=== PATIENT | male | born 1950 | race Caucasian/White ===

== ENCOUNTER → 2017-01-17 | Outpatient (CLI) | payer MEDICARE, BC ==
[2017-01-17 10:36] LABS: CHCM 34.8; HCT 44.8 % (39.0-53.0); HDW 2.95; HGB 15.2 gm/dL (13.0-17.5); MCH 33.3 pg (25.0-35.0); MCHC 33.9 g/dL (31.0-37.0); MCV 98.1 fL (80.0-100.0); RBC 4.57 m/uL (4.30-5.90); RDW 13.9 % (11.5-15.5)
[2017-01-17 10:49] LABS: Anion Gap 7 mmol/L; Blood Urea Nitrogen 15 mg/dL (9-20); Calcium 9.7 mg/dL (8.4-10.2); Carbon Dioxide 31 mmol/L (22-30); Chloride 101 mmol/L (98-107); Cholesterol 171 mg/dL (<200); Glucose 229 mg/dL (74-99); HDL Cholesterol 59 mg/dL (40-60); Non-African American GFR(MDRD) >60 (>60 ml/min/1.73 sqM); Potassium 4.9 mmol/L (3.5-5.1); Sodium 139 mmol/L (137-145); Triglycerides 114 mg/dL (<150)
[2017-01-17 11:01] LABS: Hemoglobin A1C 9.4 % (4.2-6.1)
== END | disposition home or self-care (01) ==
LOC: LABWHC1 09:41
PROVIDERS: ATTEND Internal Medicine Interventional Cardiology
DX: E11.9 Type 2 diabetes mellitus without complications (principal); I10 Essential (primary) hypertension
CPT/HCPCS: 36415; 80048; 80061; 83036; 85027

== ENCOUNTER → 2018-08-10 | Outpatient (CLI) | payer MEDICARE, BC ==
[2018-08-10 11:34] LABS: HCT 42.8 % (39.0-53.0); HGB 14.1 gm/dL (13.0-17.5); MCH 32.9 pg (25.0-35.0); MCV 99.6 fL (80.0-100.0); Mean Platelet Volume 6.9; Platelet Count 163 k/uL (150-450); RDW 13.3 % (11.5-15.5)
[2018-08-10 11:35] LABS: Appearance,Urine Clear (Clear); Bilirubin,Urine Negative (Negative); Blood,Urine Negative (Negative); Color,Urine Yellow; Glucose,Urine (UA) Negative (Negative); Ketones,Urine Negative (Negative); Leukocyte Esterase,Urine Negative (Negative); Nitrite,Urine Negative (Negative); PH, Urine 5.5 (5.0-8.0); Protein,Urine Negative (Negative); Specific Gravity,Urine 1.016 (1.001-1.035); Urobilinogen,Urine <2.0 mg/dL (<2.0)
[2018-08-10 11:55] LABS: Anion Gap 6 mmol/L; Blood Urea Nitrogen 18 mg/dL (9-20); Carbon Dioxide 29 mmol/L (22-30); Chloride 105 mmol/L (98-107); Potassium 4.6 mmol/L (3.5-5.1); Sodium 140 mmol/L (137-145)
[2018-08-10 12:14] LABS: Partial Thromboplastin Time 23.6 sec (22.0-30.0); Prothrombin Time 9.7 sec (9.0-12.0)
== END | disposition home or self-care (01) ==
LOC: LABPAT 10:08
PROVIDERS: ATTEND Orthopaedic Surgery
DX: Z01.818 Encounter for other preprocedural examination (principal); Z01.812 Encounter for preprocedural laboratory examination; Z79.01 Long term (current) use of anticoagulants
CPT/HCPCS: 80051; 81003; 82565; 84520; 85027; 85610; 85730; 87070; 93005

== ENCOUNTER → 2018-08-10 | Outpatient (CLI) | payer MEDICARE, BC ==
[2018-08-10 22:43] LABS: Hemoglobin A1C 5.6 % (4.0-6.0)
== END | disposition home or self-care (01) ==
LOC: LABWHC1 10:11
PROVIDERS: ATTEND Nurse Practitioner
DX: E11.42 Type 2 diabetes mellitus with diabetic polyneuropathy (principal)
CPT/HCPCS: 36415; 83036; 93005

== ENCOUNTER 2018-09-03 07:00 | Inpatient (IN) | payer MEDICARE, BC ==
[~2018-09-03 07:00] MED LIST: ACETAMINOPHEN TAB 500 MG TAB PO ONE; MELOXICAM 7.5 MG TAB PO ONE; MIDAZOLAM 2 MG/2 ML VIAL IV PRN; ROPIVACAINE 246.25 MG, EPINEPHrine 0.5 MG, KETOROLAC 30 MG, cloNIDine HCL/PF 80 MCG, WA... MISCELLANE ONE; TRANEXAMIC ACID 1,000 MG in SODIUM CHLORIDE 0.9% 50 ML IVPB ONE; ceFAZolin IN SWFI 2 GM/20 ML SYRINGE IVP ONE; fentaNYL (PF) 50 MCG/ML 2 ML AMP IV PRN
[2018-09-03] MEDS: LACTATED RINGERS 1,000 ML IV SCH ×2 (08:10→16:50)
[2018-09-03] MEDS ORDERED: LIDOCAINE 1% 20 ML VIAL (10MG/ML) FOR IV START INTRADERMA ONE (08:11)
[2018-09-03] MEDS ORDERED: DEXAMETHASONE SOD PHOS (MDV) 100 MG/10 ML VIAL IV ONE (08:11)
[2018-09-03] MEDS ORDERED: ONDANSETRON 4 MG/2 ML VIAL IVP ONE (08:12)
[2018-09-03] MEDS ORDERED: MIDAZOLAM 2 MG/2 ML VIAL IV ONE (08:22)
[2018-09-03] MEDS ORDERED: BISACODYL 10 MG SUPP RECTAL PRN (08:45)
[2018-09-03] MEDS ORDERED: ONDANSETRON 4 MG/2 ML VIAL IVP PRN (08:45)
[2018-09-03] MEDS ORDERED: DIAZEPAM 5 MG TAB PO PRN (08:45)
[2018-09-03] MEDS ORDERED: NA PHOS,M-B/NA PHOS,DI-BA 133 ML ENEMA RECTAL PRN (08:45)
[2018-09-03] MEDS ORDERED: hydrOXYzine PAMOATE 25 MG CAP PO PRN (08:45)
[2018-09-03] MEDS ORDERED: NALOXONE 0.4 MG/ML 1 ML VIAL IV PRN (08:45)
[2018-09-03] MEDS ORDERED: MAGNESIUM HYDROXIDE 2,400 MG/10 ML CUP PO PRN (08:45)
[2018-09-03] MEDS ORDERED: HYDROmorphone 1 MG/ML 1 ML SYRINGE IVP PRN ×3 (08:45)
[2018-09-03] MEDS ORDERED: HYDROcodone/APAP 5-325MG 1 EACH TAB PO PRN (08:45)
[2018-09-03] MEDS ORDERED: ceFAZolin 3,000 MG in SODIUM CHLORIDE 0.9% IRRIGATIO 3,000 ML IRRIGATION ONE (09:21)
--- NOTE | 2018-09-03 10:15 | P.ONQ ---
Anesthesiology Proc Note - PNB - Peripheral Nerve Block Performed Left Adductor Canal Infusion Time Out Performed: Yes Procedure Start Time: 08:23 Procedure Stop Time: 08:36 Indication: Acute Post-Operative Pain, Requested by physician Sedation Type: Sedate with meaningful contact maintained Preparation: Sterile Dressing Catheter: Indwelling Needle Types: On-Q Needle Size: 100mm (4") Needle Gauge: 21 Technique: Ultrasound Injectate: 0.5% Ropivacaine (see comment for volume) (ropi .5%) Blood Aspirated: No Pain Paresthesia on Injection Noted: No Resistance on Injection: Normal Events: Uneventful and Well Tolerated
[2018-09-03] MEDS ORDERED: ROPIVACAINE 1,100 MG, SODIUM CHLORIDE 0.9% 500 ML 330 ML MISCELLANE PRN ×2 (10:23)
[2018-09-03] MEDS ORDERED: LACTATED RINGERS 1,000 ML IV ONE (10:36)
--- NOTE | 2018-09-03 10:40 | P.OP ---
Date of Procedure: 09/03/18 Preoperative Diagnosis: Severe osteoarthritis left knee Postoperative Diagnosis: Severe osteoarthritis left knee Procedure(s) Performed: Left total knee arthroplasty Implants: Vasquez [employer] Nephew Journey II CR Oxinium cruciate retaining femoral component size 7, left Vasquez [employer] Journey left nonporous tibial baseplate size 6 Vasquez [employer] Journey II, XLPE CR articular insert, size 9 mm, Size 5-6 left [employer] Journey BCS resurfacing Oval patellar component, 32 mm All components were cemented using [place]os R bone cement.. The articulation is Oxinium on polyethylene. Anesthesia: spinal Surgeon: iNco Elizondo Supervisor Corduroy Cutting #1: Sofia Ma Estimated Blood Loss (ml): 50 Pathology: other (Bone and cartilage) Condition: stable Disposition: PACU Indications for Procedure: After failure of conservative treatment we discussed the surgical and nonsurgical treatment options at length. Patient wishes to proceed with a total knee arthroplasty. Complications specific to this procedure were discussed at length, including but not limited to infection, bleeding, stiffness , and nerve injury. Patient is aware of all these complications and informed consent was obtained Operative Findings: The operative findings are consistent with severe osteoarthritis of the left knee Description of Procedure: Patient was seen in the preoperative area consent was reviewed and operative site was marked with a skin marker. An adductor canal pain catheter was placed by anesthesia in the preoperative area. Patient was then brought to the operating room and given preoperative antibiotics intravenously. A spinal anesthetic was administered by the anesthesia department. A tourniquet was placed on the upper thigh and the lower extremity was prepped and draped in usual sterile fashion. A gram of transexamic acid was given. A universal timeout was then performed which confirmed the patient's name, surgical site, ALLERGIES, and consent. The lower extremity was then exsanguinated and tourniquet was inflated to 250 mmHg. A standard and anterior midline approach to the knee was performed. The skin and subcutaneous tissue was dissected down to the patellar tendon. A medial parapatellar arthrotomy was then performed. The knee was then extended, the patellar was everted, and the knee was again flexed. Anterior horns of both menisci were excised, and a release was performed to the posterior medial aspect of the knee. On gross visual inspection, there was complete loss of articular cartilage in the medial and patellofemoral joint spaces. There was also significant cartilage damage in the lateral compartment. There were multiple periarticular osteophytes which were then removed with a Ronguer. The femoral canal was then opened with the appropriate drill, and the intramedullary femoral cutting guide was then placed and set for 5 of valgus. The distal femoral cutting block was then pinned in place, and the distal femur was then cut. The cutting block was then removed and the cut was checked for flatness. Next, the sizing guide was then placed and set for 3 external rotation based off of the epicondylar axis and Whitesides line. After the femur was sized, the appropriate 4-in-1 cutting block was then pinned in place. The anterior condyles were cut without notching. The posterior and chamfer cuts were performed while protecting the collateral ligaments. The cutting block was then removed, and the femoral canal was plugged with autologous bone. Attention was then directed to the tibia. The remaining ACL was removed with a Ronguer, and the tibia was then gently subluxed forward with a large bent knee retractor. Any remaining menisci was excised. The posterior lateral corner was cauterized in order to cauterize the lateral geniculate artery. The extra medullary tibial cutting guide was then placed, set for the appropriate rotation , slope, and depth of resection. The proximal tibia cutting guide was then pinned in place. Proximal tibia was then cut and sized. Next trials were then placed with the appropriate-sized insert. The knee was able to fully extend and flex to 130 and was stable throughout all range of motion. The knee was then extended, patella everted. Patella was then measured, and then using an osteotomy guide, the patella was cut at the appropriate level. The patella was then measured and drilled and the patella trial was then placed. The knee was then taken through range of motion with the patella trial and the patella tracked normally. The knee was then extended patella trial was then removed and the patella was everted. Knee was then flexed and lug holes were drilled through the femoral trial and the femoral trial was then removed. The tibial was then exposed, and the tibial broach guide was then pinned in place after it was set for the appropriate rotation to allow for the most coverage without overhang. The tibia was then reamed and broached. The cut surfaces of bone were then irrigated with pulsatile lavage. The posterior structures were injected with the ropivacaine solution. The knee was also irrigated with Irrisept solution. The components were then opened, the cement was mixed, and the components were then cemented in place. The cement was allowed to harden with the knee in full extension. While the cement was hardening, the remaining soft tissues were then injected with a ropivacaine solution, which consisted of 246.25 mg of ropivacaine, 0.5 mg of epinephrine, 30 mg of Toradol, 80 g of clonidine, and 48.45 mL of sterile water, for a total of 100 mL of fluid injected. After the cemented hardened. The tourniquet was released, and hemostasis was obtained. A second gram of transexamic acid was given. The knee was again irrigated. The knee was again taken through range of motion and found to be stable throughout all range of motion of 0-130 , and the patella tracked normally. The fascia was then closed with #2 strata fix suture. The subcutaneous tissue was closed with 3-0 Vicryl and 3-0 strata fix. Dermabond glue was used for the skin and placed with the knee in flexion. The patient was placed in a sterile silver dressing. Patient was then transferred to recovery room in stable condition. The urology physician assistant JENNIFER Hills was required due the complexity surgery and the need for a skilled surgical corsetier. She assisted in positioning, draping, retraction, and closure of the wound.
--- NOTE | 2018-09-03 12:03 | XR ---
EXAMINATION TYPE: XR knee limited LT DATE OF EXAM: 09/03/2018 CLINICAL HISTORY: Left knee pain and arthritis status post total knee replacement. TECHNIQUE: Portable AP and crosstable lateral views of the left knee are obtained immediately postop eratively. COMPARISON: None FINDINGS: Metallic hardware from total left knee arthroplasty is seen and appears satisfactory in al ignment and position. There is evidence of recent surgery with diffuse subcutaneous gas and soft tis malcolm swelling noted. IMPRESSION: METALLIC HARDWARE FROM TOTAL LEFT KNEE ARTHROPLASTY IS SATISFACTORY IN ALIGNMENT.
[2018-09-03 12:14] LABS: Glucose,Whole Blood 139 mg/dL (75-99)
[2018-09-03 15:08] VITALS: BMI 33.7
[2018-09-03] MEDS: SODIUM CHLORIDE 0.9% 1,000 ML IV SCH (16:51)
[2018-09-03] MEDS: ceFAZolin IN SWFI 2 GM/20 ML SYRINGE IVP SCH (16:54)
[2018-09-03] MEDS: INSULIN ASPART 100 UNIT/ML 1 ML 10 ML VIAL SQ SCH ×2 (17:04→20:40)
[2018-09-03 17:09] LABS: Glucose,Whole Blood 148 mg/dL (75-99)
[2018-09-03 20:31] LABS: Glucose,Whole Blood 199 mg/dL (75-99)
[2018-09-03] MEDS: ASPIRIN 325 MG TAB PO SCH (20:38)
[2018-09-03] MEDS ORDERED: SENNOSIDES-DOCUSATE SODIUM 1 EACH TAB PO SCH (21:00)
[2018-09-03] MEDS ORDERED: ATORVASTATIN 20 MG TAB PO SCH (21:00)
[2018-09-03] MEDS ORDERED: LISINOPRIL 20 MG TAB PO SCH (21:00)
[2018-09-04] MEDS: ceFAZolin IN SWFI 2 GM/20 ML SYRINGE IVP SCH (01:06)
[2018-09-04] MEDS: SODIUM CHLORIDE 0.9% 1,000 ML IV SCH ×2 (01:59→06:57)
[2018-09-04] MEDS: LACTATED RINGERS 1,000 ML IV SCH ×2 (02:00→06:52)
[2018-09-04 06:57] LABS: Glucose,Whole Blood 102 mg/dL (75-99)
[2018-09-04] MEDS: INSULIN ASPART 100 UNIT/ML 1 ML 10 ML VIAL SQ SCH ×2 (06:57→12:02)
[2018-09-04] MEDS: HYDROcodone/APAP 5-325MG 1 EACH TAB PO PRN ×2 (07:00→12:02)
[2018-09-04] MEDS: ASPIRIN 325 MG TAB PO SCH (07:00)
--- NOTE | 2018-09-04 07:58 | P.PN ---
Progress Note - Text Progress Note Date: 09/04/18 The patient is status post[ 1] adductor canal catheter placement. The catheter was placed for postoperative pain control, status post total [left Knee] arthroplasty. Ropivacaine 0.2% is infusing at[ 8] mLs per hour. The patient has no complaints of[ ] lower extremity numbness or weakness. Patient's VAS score is[ 3]-10. Assessment: Patient's adductor canal catheter is in place and working appropriately. Plan: continue infusion and adjust it as needed.
[2018-09-04 08:00] LABS: Basophils % (A) 0 %; Eosinophils # (A) 0.1 k/uL (0-0.7); Eosinophils % (A) 2 %; HCT 35.2 % (39.0-53.0); HGB 11.9 gm/dL (13.0-17.5); Lymphocytes # (A) 1.2 k/uL (1.0-4.8); Lymphocytes % (A) 21 %; MCH 33.4 pg (25.0-35.0); MCHC 33.9 g/dL (31.0-37.0); MCV 98.4 fL (80.0-100.0); Mean Platelet Volume 7.1; Monocytes # (A) 0.5 k/uL (0-1.0); Monocytes % (A) 8 %; Neutrophils # (A) 3.9 k/uL (1.3-7.7); Neutrophils % (A) 67 %; Platelet Count 145 k/uL (150-450); RBC 3.57 m/uL (4.30-5.90); RDW 13.3 % (11.5-15.5); WBC 5.7 k/uL (3.8-10.6)
[2018-09-04 08:13] LABS: ALT 33 U/L (21-72); AST 21 U/L (17-59); Albumin 3.2 g/dL (3.5-5.0); Alkaline Phosphatase 43 U/L (38-126); Anion Gap 4 mmol/L; Blood Urea Nitrogen 17 mg/dL (9-20); Calcium 8.8 mg/dL (8.4-10.2); Carbon Dioxide 29 mmol/L (22-30); Chloride 105 mmol/L (98-107); Glucose 115 mg/dL (74-99); Potassium 4.1 mmol/L (3.5-5.1); Sodium 138 mmol/L (137-145); Total Bilirubin 1.3 mg/dL (0.2-1.3); Total Protein 5.6 g/dL (6.3-8.2)
[2018-09-04] MEDS ORDERED: MELOXICAM 7.5 MG TAB PO SCH (09:00)
--- NOTE | 2018-09-04 10:11 | P.HPIM ---
History of Present Illness H&P Date: 09/04/18 Chief Complaint: Osteoarthritis of the left This is a 68-year-old male patient of Dr. Melvin. Patient presented for an elective total left knee arthroplasty with Dr. Elizondo on 09/03/2018. Patient has a known past medical history of chest pain, diabetes mellitus, hyperlipidemia, hypertension, heart cath, PVCs related to irregular rhythm, skin cancer, diverticulitis and ex-smoker. Patient is currently postop day 1. Patient is currently resting in bed. Patient states he feels minimal pain to left knee. left knee incision clean dry and intact. Patient is eager to go home patient has been up walking. Patient does have adequate pain control per surgical services. At this time patient denies chest pain or shortness of breath. Patient denies nausea vomiting or diarrhea. Patient denies any urinary burning or frequency. Review of Systems Please refer to HPI otherwise unremarkable Past Medical History Past Medical History: Cancer, Chest Pain / Angina, Diabetes Mellitus, Hyperlipidemia, Hypertension, Osteoarthritis (OA) Additional Past Medical History / Comment(s): IRREGULAR RYTHYM, SKIN CANCER ON BACK,DIVERTICULITIS, IN NOV 2014 FELL DOWN STEPS HAD BRUISED LIVER. History of Any Multi-Drug Resistant Organisms: None Reported Past Surgical History: Heart Catheterization, Hernia Repair, Orthopedic Surgery Additional Past Surgical History / Comment(s): UMBILICAL HERNIA REPAIR, COLONOSCOPY, LT KNEE ARTHROSCOPY, Past Anesthesia/Blood Transfusion Reactions: No Reported Reaction Past Psychological History: No Psychological Hx Reported Additional Psychological History / Comment(s): . Smoking Status: Former smoker Past Alcohol Use History: Occasional Additional Past Alcohol Use History / Comment(s): SMOKED TEENAGER, QUIT 40 YEARS AGO Past Drug Use History: None Reported - Past Family History Father Family Medical History: Cancer, Diabetes Mellitus Additional Family Medical History / Comment(s): PROSTATE Mother Family Medical History: Cancer Additional Family Medical History / Comment(s): COLON CANCER Brother(s) Family Medical History: Cancer Additional Family Medical History / Comment(s): COLON CA Medications and Allergies Home Medications Medication Instructions Recorded Confirmed Type Acetaminophen Tab [Tylenol] 500 mg PO Q6H PRN 02/27/15 09/03/18 History Aspirin EC [Ecotrin Low Dose] 81 mg PO HS 02/27/15 09/03/18 History Atorvastatin Calcium [Lipitor] 20 mg PO HS 02/27/15 09/03/18 History Enalapril [Vasotec] 10 mg PO HS 02/27/15 09/03/18 History Ibuprofen [Motrin] 200 mg PO Q6HR PRN 02/27/15 09/03/18 History Multivitamin [Men's Multi-Vitamin] 1 tab PO DAILY 02/27/15 09/03/18 History [place]-3 Fatty Acids/Fish Oil [Fish 1 cap PO DAILY 02/27/15 09/03/18 History Oil 1,000 mg Softgel] metFORMIN HCL 1,000 mg PO BID 08/29/18 09/03/18 History Aspirin 325 mg PO BID #60 tab 09/04/18 Rx HYDROcodone/APAP 5-325MG [[place] 1 - 2 tab PO Q4-6H PRN #84 tab 09/04/18 Rx 5-325] Sennosides [Senokot] 1 tab PO BID #60 tablet 09/04/18 Rx Allergies Allergy/AdvReac Type Severity Reaction Status Date / Time No Known Allergies Allergy Verified 09/03/18 15:11 Physical Exam Vitals: Vital Signs Temp Pulse Resp BP Pulse Ox 09/04/18 07:02 17 09/04/18 06:55 97.6 F 72 17 159/83 97 09/04/18 03:41 55 L 16 09/04/18 00:00 55 L 16 09/03/18 23:00 97.3 F L 55 L 16 101/55 93 L 09/03/18 20:00 55 L 16 09/03/18 19:00 98 F 69 18 127/67 94 L 09/03/18 16:00 16 09/03/18 15:10 97.8 F 67 16 125/78 94 L 09/03/18 14:30 58 L 16 139/62 97 09/03/18 14:00 51 L 16 141/60 97 09/03/18 13:30 52 L 16 130/77 97 09/03/18 13:00 59 L 16 129/79 97 09/03/18 12:45 57 L 16 131/79 96 09/03/18 12:30 61 16 126/75 96 09/03/18 12:15 57 L 16 124/69 96 09/03/18 11:59 58 L 16 124/66 94 L 09/03/18 11:30 55 L 18 123/65 95 09/03/18 11:11 97.8 F 60 18 128/67 93 L Intake and Output 09/03/18 09/04/18 09/04/18 22:59 06:59 14:59 Output Total 1000 Balance -1000 Output: Urine 1000 Other: Voiding Method Toilet Toilet Toilet # Voids 3 Weight 113 kg Head normocephalic Neck supple Lungs clear to auscultation bilaterally no wheezing or crackles Heart regular rate and rhythm S1-S2, no rub or gallop Abdomen is soft nontender nondistended positive bowel sounds no hepatosplenomegaly Extremities no edema. Left knee dressing is clean dry and intact Neuro alert and orientated to 3 Results CBC & Chem 7: 09/04/18 07:12 09/04/18 07:12 Labs: Abnormal Lab Results - Last 24 Hours (Table) 09/03/18 09/03/18 09/03/18 Range/Units 12:13 16:58 20:29 RBC (4.30-5.90) m/uL Hgb (13.0-17.5) gm/dL Hct (39.0-53.0) % Plt Count (150-450) k/uL Glucose (74-99) mg/dL POC Glucose (mg/dL) 139 H 148 H 199 H (75-99) mg/dL Total Protein (6.3-8.2) g/dL Albumin (3.5-5.0) g/dL 09/04/18 09/04/18 09/04/18 Range/Units 06:45 07:12 07:12 RBC 3.57 L (4.30-5.90) m/uL Hgb 11.9 L (13.0-17.5) gm/dL Hct 35.2 L (39.0-53.0) % Plt Count 145 L (150-450) k/uL Glucose 115 H (74-99) mg/dL POC Glucose (mg/dL) 102 H (75-99) mg/dL Total Protein 5.6 L (6.3-8.2) g/dL Albumin 3.2 L (3.5-5.0) g/dL Thrombosis Risk Factor Assmnt - Choose All That Apply Any of the Below Risk Factors Present?: Yes Each Risk Factor Represents 2 Points: Age 61-74 years, Major surgery Thrombosis Risk Factor Assessment Total Risk Factor Score: 4 Thrombosis Risk Factor Assessment Level: Moderate Risk Assessment and Plan Assessment: 1. Status post total left knee arthroplasty with Dr. Elizondo. Patient is currently postop day 1. Pain control per surgical services. Patient DVT prophylactic with aspirin 325 by mouth twice a day. Patient has been ambulating. 2. History of diabetes mellitus. Metformin currently on hold 3. History of hyperlipidemia. Maintained on Lipitor 4. Essential hypertension. Home meds resumed 5. History of irregular rhythm with premature ventricular complexes 8. History of diverticulitis DVT prophylaxis aspirin. GI prophylaxis Protonix. Thank you for this consultation we will continue to follow patient closely throughout stay. Patient planning to be DC'd home when cleared by [id number] Time with Patient: Greater than 30 (Greater than 60% of the total time spent in counseling and coordination of care. I performed an examination of the patient and discussed their management with the Nurse Practitioner. I have reviewed the Nurse Practitioner's notes and agree with the documented findings and plan of care)
--- NOTE | 2018-09-04 11:00 | P.DS ---
Providers Date of admission: 09/03/18 07:31 Expected date of discharge: 09/04/18 Attending physician: Nico Elizondo Consults: 09/03/18 08:45 Consult Physician Routine Consulting Provider: Bryce Barnes Consult Reason/Comments: medical management Do you want consulting provider notified?: Yes Primary care physician: Reyna Melvin - Discharge Diagnosis(es) (1) Primary osteoarthritis of left knee Current Visit: Yes Status: Acute (2) S/P total knee arthroplasty Current Visit: Yes Status: Acute Hospital Course: This is a 68-year-old male with known history of degenerative arthritis of the left knee. The patient presents for evaluation. After discussion and consideration patient elects to proceed with total knee arthroplasty. The patient is seen preoperatively by Dr. Elizondo and medically cleared for surgery by their primary care physician. Patient is admitted to [facility] on 09/03/2018 for total knee arthroplasty. The procedures performed without complication or sequelae. The patient is doing well postoperatively. Labs and vital signs are stable on day of discharge. On day of discharge patient's knee incision is healing well. There is minimal erythema. There is no drainage noted at this time. There is minimal soft tissue swelling to the knee. Patient has full foot and ankle motion without difficulty or pain. Neurovascular status to the left lower extremity is intact. Patient is discharged home in good condition. Please see med rec for accurate list of home medications. Plan - Discharge Summary Discharge Rx Participant: No New Discharge Prescriptions: New Aspirin 325 mg PO BID #60 tab HYDROcodone/APAP 5-325MG [[place] 5-325] 1 - 2 tab PO Q4-6H PRN #84 tab PRN Reason: Pain Sennosides [Senokot] 1 tab PO BID #60 tablet No Action Enalapril [Vasotec] 10 mg PO HS Atorvastatin Calcium [Lipitor] 20 mg PO HS Ibuprofen [Motrin] 200 mg PO Q6HR PRN PRN Reason: Pain Acetaminophen Tab [Tylenol] 500 mg PO Q6H PRN PRN Reason: Pain Aspirin EC [Ecotrin Low Dose] 81 mg PO HS [place]-3 Fatty Acids/Fish Oil [Fish Oil 1,000 mg Softgel] 1 cap PO DAILY Multivitamin [Men's Multi-Vitamin] 1 tab PO DAILY metFORMIN HCL 1,000 mg PO BID Discharge Medication List Acetaminophen Tab [Tylenol] 500 mg PO Q6H PRN 02/27/15 [History] Aspirin EC [Ecotrin Low Dose] 81 mg PO HS 02/27/15 [History] Atorvastatin Calcium [Lipitor] 20 mg PO HS 02/27/15 [History] Enalapril [Vasotec] 10 mg PO HS 02/27/15 [History] Ibuprofen [Motrin] 200 mg PO Q6HR PRN 02/27/15 [History] Multivitamin [Men's Multi-Vitamin] 1 tab PO DAILY 02/27/15 [History] [place]-3 Fatty Acids/Fish Oil [Fish Oil 1,000 mg Softgel] 1 cap PO DAILY [History] metFORMIN HCL 1,000 mg PO BID 08/29/18 [History] Aspirin 325 mg PO BID #60 tab 09/04/18 [Rx] HYDROcodone/APAP 5-325MG [[place] 5-325] 1 - 2 tab PO Q4-6H PRN #84 tab 09/04/18 [ Rx] Sennosides [Senokot] 1 tab PO BID #60 tablet 09/04/18 [Rx] Follow up Appointment(s)/Referral(s): Nico Elizondo DO [Doctor of Osteopathic Medicine] - 2 Weeks Ambulatory/Diagnostic Orders: Continuous Passive Motion (CPM) Machine [DME.AMB1] Time Frame: 3 Weeks, Location : None Selected Activity/Diet/Wound Care/Special Instructions: Weightbearing as tolerated with a walker. CPM 5-6h daily. Leave dressing intact. May be removed by home care nurse in 10 days. May shower with dressing on. Please follow up with [facility] and call with any questions or concerns, . Discharge Disposition: HOME WITH HOME HEALTH SERVICES
[2018-09-04 12:11] LABS: Glucose,Whole Blood 106 mg/dL (75-99)
[2018-09-04 14:49] VITALS: BP 115/57; PULSE 50; RESP 16; TEMP 97.8
[2018-09-05] MEDS ORDERED: PANTOPRAZOLE 40 MG TABLET PO SCH (07:30)
== END 2018-09-04 15:58 | disposition home or self-care (01) | DRG 470 ==
LOC: 2ORMAIN 07:31 → 4SSUR 14:39
PROVIDERS: ADMIT Orthopaedic Surgery; ATTEND Orthopaedic Surgery
PROC: 0SRD069 Replacement of Left Knee Joint with Oxidized Zirconium on Polyethylene Synthetic Substitute, Cemented, Open Approach (ICD-10-PCS; principal; 2018-09-03 09:15)
DX: M17.12 Unilateral primary osteoarthritis, left knee (principal); E11.9 Type 2 diabetes mellitus without complications; E78.5 Hyperlipidemia, unspecified; I10 Essential (primary) hypertension; H91.90 Unspecified hearing loss, unspecified ear; E78.00 Pure hypercholesterolemia, unspecified; E66.9 Obesity, unspecified; Z68.33 Body mass index [BMI] 33.0-33.9, adult; Z85.828 Personal history of other malignant neoplasm of skin; Z87.891 Personal history of nicotine dependence; Z87.19 Personal history of other diseases of the digestive system; Z83.3 Family history of diabetes mellitus; Z80.0 Family history of malignant neoplasm of digestive organs; Z80.42 Family history of malignant neoplasm of prostate; Z79.82 Long term (current) use of aspirin; Z79.84 Long term (current) use of oral hypoglycemic drugs; Z79.899 Other long term (current) drug therapy
CPT/HCPCS: 80053; 85025; 88300

== ENCOUNTER → 2020-04-15 | Outpatient (CLI) | payer MEDICARE ==
[2020-04-15 07:51] LABS: HCT 41.2 % (39.0-53.0); HGB 14.2 gm/dL (13.0-17.5); MCH 34.1 pg (25.0-35.0); MCHC 34.5 g/dL (31.0-37.0); MCV 98.7 fL (80.0-100.0); Mean Platelet Volume 7.4; Platelet Count 179 k/uL (150-450); RBC 4.17 m/uL (4.30-5.90); RDW 13.4 % (11.5-15.5); WBC 4.4 k/uL (3.8-10.6)
[2020-04-15 08:05] LABS: African American GFR (CKD) >90 (>60 ml/min/1.73 sqM); Anion Gap 7 mmol/L; Blood Urea Nitrogen 15 mg/dL (9-20); Carbon Dioxide 26 mmol/L (22-30); Chloride 106 mmol/L (98-107); Glucose 121 mg/dL (74-99); Non-African American GFR(CKD) >90 (>60 ml/min/1.73 sqM); Potassium 4.5 mmol/L (3.5-5.1); Sodium 139 mmol/L (137-145)
== END | disposition home or self-care (01) ==
LOC: LABPAT 07:24
PROVIDERS: ATTEND Internal Medicine Interventional Cardiology
DX: Z01.818 Encounter for other preprocedural examination (principal); I47.1 Supraventricular tachycardia; E78.5 Hyperlipidemia, unspecified
CPT/HCPCS: 36415; 80051; 82565; 82947; 84520; 85027

== ENCOUNTER 2020-11-04 11:43 | Inpatient (IN) | payer MEDICARE ==
[2020-11-04] MEDS ORDERED: ACETAMINOPHEN TAB 500 MG TAB PO STA (12:00)
--- NOTE | 2020-11-04 12:13 | ED ---
General Adult HPI - General Chief complaint: Shortness of Breath Stated complaint: SOB Time Seen by Provider: 11/04/20 11:51 Source: EMS, RN notes reviewed Mode of arrival: EMS Limitations: no limitations - History of Present Illness Initial comments: Patient is a 70-year-old male presented to the emergency room today with a chief complaint of increased shortness of breath. He does admit that his symptoms started approximately 10 days ago. He does admit that he was tested outpatient for covid 19 and was positive. Patient states that he's been checked his pulse ox at home. He states that today he was down in the 80s. Patient does admit that he is feeling short of breath. He does admit to generalized bodyaches. Does admit headaches. Patient denies chest pain, back pain, abdominal pain, nausea or vomiting, constipation or diarrhea, headaches or visual changes, or any other complaints. - Related Data Home Medications Medication Instructions Recorded Confirmed Atorvastatin Calcium [Lipitor] 20 mg PO HS 02/27/15 11/04/20 Enalapril [Vasotec] 10 mg PO HS 02/27/15 11/04/20 Multivitamin [Men's Multi-Vitamin] 1 tab PO DAILY 02/27/15 11/04/20 [employer] Fatty Acids/Fish Oil [Fish 1,000 mg PO DAILY 02/27/15 11/04/20 Oil 1,000 mg Softgel] metFORMIN HCL 1,000 mg PO BID 08/29/18 11/04/20 Aspirin [Adult Low Dose Aspirin EC] 81 mg PO HS 04/24/20 11/04/20 Aspirin/Sod Bicarb/Citric Acid 1 tab PO DAILY 11/04/20 11/04/20 [Lita Original Tab Eff] Cholecalciferol [Vitamin D3 (25 25 mcg PO DAILY 11/04/20 11/04/20 Mcg = 1000 Iu)] Zinc 50 mg PO DAILY 11/04/20 11/04/20 Allergies Allergy/AdvReac Type Severity Reaction Status Date / Time No Known Allergies Allergy Verified 11/04/20 12:42 Review of Systems ROS Statement: Those systems with pertinent positive or pertinent negative responses have been documented in the HPI. ROS Other: All systems not noted in ROS Statement are negative. Past Medical History Past Medical History: Cancer, Chest Pain / Angina, Hyperlipidemia, Hypertension Additional Past Medical History / Comment(s): HAYFEVER/SINUS, HYPOGLYCEMIA, IRREGULAR RYTHYM, SKIN CANCER ON BACK,DIVERTICULITIS, IN NOV 2014 FELL DOWN STEPS HAD BRUISED LIVER. History of Any Multi-Drug Resistant Organisms: None Reported Past Surgical History: Heart Catheterization, Hernia Repair Additional Past Surgical History / Comment(s): UMBILICAL HERNIA REPAIR,COLONOSCOPY POLYPS REMOVED-BENIGN, LT KNEE ARTHROCOPY, Past Anesthesia/Blood Transfusion Reactions: No Reported Reaction Past Psychological History: No Psychological Hx Reported Smoking Status: Never smoker Past Alcohol Use History: None Reported Past Drug Use History: None Reported - Past Family History Father Family Medical History: Cancer Additional Family Medical History / Comment(s): PROSTATE Mother Family Medical History: Cancer Additional Family Medical History / Comment(s): COLON CANCER Brother(s) Family Medical History: Cancer Additional Family Medical History / Comment(s): COLON CA General Exam - General Exam Comments Initial Comments: General: The patient is awake and alert, in no distress, and does not appear acutely ill. Eye: extra-ocular movements are intact. There is normal conjunctiva bilaterally. No signs of icterus. Ears, nose, mouth and throat: There are moist mucous membranes and no oral lesions. Neck: The neck is supple Respiratory: respirations are non-labored. No wheezes, stridor Musculoskeletal: Normal ROM, no tenderness. Strength 5/5. Sensation intact. Neurological: A&O x 3. CN II-XII intact, There are no obvious motor or sensory deficits. Coordination appears grossly intact. Speech is normal. Skin: Skin is warm and dry and no rashes or lesions are noted. Psychiatric: Cooperative, appropriate mood & affect, normal judgment. Limitations: no limitations Course Vital Signs 11/04/20 11/04/20 11/04/20 11:47 12:00 13:03 Temperature 100.0 F H 98.7 F Pulse Rate 80 71 Respiratory 18 20 20 Rate Blood Pressure 122/80 109/72 O2 Sat by Pulse 93 L 94 L Oximetry Medical Decision Making - Medical Decision Making Patient reexamined at the Center no signs of distress. Is resting covered. Was placed on supplemental oxygen and is feeling better here in emergency room. Patient's pulse ox was 89% at triage. He was hypoxic in the 80s at home. Monica ent chest x-ray reviewed and does show patchy infiltrate. His labs been reviewed unremarkable. Given dose of dexamethasone here the emergency room. Case was discussed with the physician Dr. Davenport who will admit the patient with consult to - Lab Data Result diagrams: 11/04/20 12:14 11/04/20 12:14 Lab Results 11/04/20 11/04/20 11/04/20 Range/Units 12:14 12:14 12:14 WBC 8.7 (3.8-10.6) k/uL RBC 3.78 L (4.30-5.90) m/uL Hgb 12.5 L (13.0-17.5) gm/dL Hct 36.4 L (39.0-53.0) % MCV 96.4 (80.0-100.0) fL MCH 33.1 (25.0-35.0) pg MCHC 34.3 (31.0-37.0) g/dL RDW 14.4 (11.5-15.5) % Plt Count 192 (150-450) k/uL MPV 7.4 Neutrophils % 92 % Lymphocytes % 5 % Monocytes % 2 % Eosinophils % 0 % Basophils % 0 % Neutrophils # 7.9 H (1.3-7.7) k/uL Lymphocytes # 0.5 L (1.0-4.8) k/uL Monocytes # 0.2 (0-1.0) k/uL Eosinophils # 0.0 (0-0.7) k/uL Basophils # 0.0 (0-0.2) k/uL Hypochromasia Slight Poikilocytosis Slight Sodium 134 L (137-145) mmol/L Potassium 4.2 (3.5-5.1) mmol/L Chloride 100 (98-107) mmol/L Carbon Dioxide 24 (22-30) mmol/L Anion Gap 10 mmol/L BUN 19 (9-20) mg/dL Creatinine 0.85 (0.66-1.25) mg/dL Est GFR (CKD-EPI)AfAm >90 (>60 ml/min/1.73 sqM) Est GFR (CKD-EPI)NonAf 89 (>60 ml/min/1.73 sqM) Glucose 122 H (74-99) mg/dL Plasma Lactic Acid Pieter 1.7 (0.7-2.0) mmol/L Calcium 8.7 (8.4-10.2) mg/dL Total Bilirubin 1.0 (0.2-1.3) mg/dL AST 80 H (17-59) U/L ALT 65 H (4-49) U/L Alkaline Phosphatase 50 (38-126) U/L Total Protein 6.1 L (6.3-8.2) g/dL Albumin 3.3 L (3.5-5.0) g/dL Critical Care Time Critical Care Time: Yes Total Critical Care Time: 32 (Patient was hypoxic 89%.triage. Was placed on 2 L of supplemental oxygen and oxygenation is improved to mid 90s. Patient chest x- ray does show infiltrate consistent with covid pneumonia. Will be admitted to the hospital for hypoxia and covid infection.) Disposition Clinical Impression: Pneumonia due to COVID-19 virus, Hypoxia Disposition: ADMITTED IP TO THIS HOSP Condition: Stable Is patient prescribed a controlled substance at d/c from ED?: No Referrals: Reyna Melvin MD [Primary Care Provider] - 1-2 days Time of Disposition: 13:08
[2020-11-04 12:47] LABS: ALT 65 U/L (4-49); AST 80 U/L (17-59); African American GFR (CKD) >90 (>60 ml/min/1.73 sqM); Albumin 3.3 g/dL (3.5-5.0); Alkaline Phosphatase 50 U/L (38-126); Anion Gap 10 mmol/L; Blood Urea Nitrogen 19 mg/dL (9-20); Calcium 8.7 mg/dL (8.4-10.2); Carbon Dioxide 24 mmol/L (22-30); Chloride 100 mmol/L (98-107); Glucose 122 mg/dL (74-99); Non-African American GFR(CKD) 89 (>60 ml/min/1.73 sqM); Potassium 4.2 mmol/L (3.5-5.1); Sodium 134 mmol/L (137-145); Total Protein 6.1 g/dL (6.3-8.2)
[2020-11-04 12:53] LABS: Basophils % (A) 0 %; Eosinophils % (A) 0 %; HCT 36.4 % (39.0-53.0); HGB 12.5 gm/dL (13.0-17.5); Hypochromasia Slight; Lymphocytes # (A) 0.5 k/uL (1.0-4.8); Lymphocytes % (A) 5 %; MCH 33.1 pg (25.0-35.0); MCHC 34.3 g/dL (31.0-37.0); MCV 96.4 fL (80.0-100.0); Mean Platelet Volume 7.4; Monocytes # (A) 0.2 k/uL (0-1.0); Monocytes % (A) 2 %; Neutrophils # (A) 7.9 k/uL (1.3-7.7); Neutrophils % (A) 92 %; Platelet Count 192 k/uL (150-450); Poikilocytosis Slight; RBC 3.78 m/uL (4.30-5.90); RDW 14.4 % (11.5-15.5); WBC 8.7 k/uL (3.8-10.6)
--- NOTE | 2020-11-04 12:54 | XR ---
EXAMINATION TYPE: XR chest 1V portable DATE OF EXAM: 11/04/2020 HISTORY: Shortness of breath. COMPARISON: 02/27/2015 TECHNIQUE: Single view of the chest is submitted. FINDINGS: Demonstrated are scattered senescent parenchymal change. Patchy basilar infiltrates may reflect underlying pneumonia. Correlate clinically and progress studie s are advised. The heart is stable. Hilar and mediastinal structures are within normal limits. Degenerative changes are seen of the dorsal spine. IMPRESSION: 1. Patchy basilar infiltrates may reflect underlying pneumonia. Correlate clinically and progress st udies are advised.
[2020-11-04] MEDS ORDERED: DEXAMETHASONE SOD PHOSPHATE 10 MG/ML 1 ML VIAL IV STA (13:08)
[2020-11-04] MEDS ORDERED: NALOXONE 0.4 MG/ML 1 ML VIAL IV PRN (13:09)
[2020-11-04] MEDS ORDERED: ACETAMINOPHEN TAB 500 MG TAB PO PRN (13:11)
[2020-11-04] MEDS: SODIUM CHLORIDE 0.9% 1,000 ML IV SCH (13:41)
--- NOTE | 2020-11-04 14:04 | P.HPIM ---
History of Present Illness H&P Date: 11/04/20 Antonino Latham, is a 70-year-old male patient of Dr. Melvin, who presented to [facility] emergency room with a chief complaint of worsening shortness of breath. Patient stated that he started having cough and upper respiratory congestion about 10 days ago, he went to [facility] and was tested for Covid 19 and his test was positive, he had mild symptoms initially however he developed worsening shortness of breath and decided to come to emergency room. Patient was evaluated in the emergency room his vital examination on presentation revealed a temperature of 100 pulse 80 respiration 18 blood pressure 122/80 pulse ox 93% on 2 L nasal cannula his white blood count was 8.7 hemoglobin 12.5 platelet count 192 sodium 138 potassium 4.2 chloride 100 CO2 24 BUN 19 creatinine 0.85 glucose 122 AST elevated at 80 ALT 65 troponin level at 0.014 chest x-ray done in the emergency room and revealed evidence of patchy basilar infiltrates patient was admitted to telemetry floor pulmonary consu ltation was requested he was started on IV steroids and subcutaneous Lovenox. 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 He denies any history of coronary artery disease myocardial infarction or congestive heart failure in the past. He denies any history of asthma or emphysema he states he never smoked. On review of systems patient is complaining of occasional cough and complaining of shortness of breath otherwise he denies any complaints there is no fever or chills no headache or dizziness no chest pain no palpitation no nausea or vomiting no abdominal pain no diarrhea no blood in the stools no burning with urination no frequency or urgency and no hematuria. Past Medical History Past Medical History: Cancer, Chest Pain / Angina, Hyperlipidemia, Hypertension Additional Past Medical History / Comment(s): HAYFEVER/SINUS, HYPOGLYCEMIA, IRREGULAR RYTHYM, SKIN CANCER ON BACK,DIVERTICULITIS, IN NOV 2014 FELL DOWN STEPS HAD BRUISED LIVER. History of Any Multi-Drug Resistant Organisms: None Reported Past Surgical History: Heart Catheterization, Hernia Repair Additional Past Surgical History / Comment(s): UMBILICAL HERNIA R EPAIR,COLONOSCOPY POLYPS REMOVED-BENIGN, LT KNEE ARTHROCOPY, Past Anesthesia/Blood Transfusion Reactions: No Reported Reaction Past Psychological History: No Psychological Hx Reported Smoking Status: Never smoker Past Alcohol Use History: None Reported Past Drug Use History: None Reported - Past Family History Father Family Medical History: Cancer Additional Family Medical History / Comment(s): PROSTATE Mother Family Medical History: Cancer Additional Family Medical History / Comment(s): COLON CANCER Brother(s) Family Medical History: Cancer Additional Family Medical History / Comment(s): COLON CA Medications and Allergies Home Medications Medication Instructions Recorded Confirmed Type Atorvastatin Calcium [Lipitor] 20 mg PO HS 02/27/15 11/04/20 History Enalapril [Vasotec] 10 mg PO HS 02/27/15 11/04/20 History Multivitamin [Men's Multi-Vitamin] 1 tab PO DAILY 02/27/15 11/04/20 History [place]-3 Fatty Acids/Fish Oil [Fish 1,000 mg PO DAILY 02/27/15 11/04/20 History Oil 1,000 mg Softgel] metFORMIN HCL 1,000 mg PO BID 08/29/18 11/04/20 History Aspirin [Adult Low Dose Aspirin EC] 81 mg PO HS 04/24/20 11/04/20 History Aspirin/Sod Bicarb/Citric Acid 1 tab PO DAILY 11/04/20 11/04/20 History [Lita Original Tab Eff] Cholecalciferol [Vitamin D3 (25 25 mcg PO DAILY 11/04/20 11/04/20 History Mcg = 1000 Iu)] Zinc 50 mg PO DAILY 11/04/20 11/04/20 History Allergies Allergy/AdvReac Type Severity Reaction Status Date / Time No Known Allergies Allergy Verified 11/04/20 12:42 Physical Exam Vitals: Vital Signs Temp Pulse Resp BP Pulse Ox 11/04/20 13:41 98.5 F 72 20 122/72 95 11/04/20 13:03 98.7 F 71 20 109/72 94 L 11/04/20 12:00 20 11/04/20 11:47 100.0 F H 80 18 122/80 93 L Intake and Output 11/03/20 11/04/20 11/04/20 22:59 06:59 14:59 Other: Weight 113.398 kg In general patient is alert and oriented 3 in no apparent distress HEENT head normocephalic and atraumatic Neck is supple no JVD no goiter no lymphadenopathy Chest exam reveals crackles in both lung bases no wheezing Cardiac exam reveals regular heart sounds S1 and S2 no gallops no murmurs Abdomen is soft nontender no organomegaly with normal bowel sounds Extremity exam reveals no edema no cyanosis or clubbing Neurological examination reveals, no gross focal neurological deficits Results CBC & Chem 7: 11/04/20 12:14 11/04/20 12:14 Labs: Abnormal Lab Results - Last 24 Hours (Table) 11/04/20 11/04/20 Range/Units 12:14 12:14 RBC 3.78 L (4.30-5.90) m/uL Hgb 12.5 L (13.0-17.5) gm/dL Hct 36.4 L (39.0-53.0) % Neutrophils # 7.9 H (1.3-7.7) k/uL Lymphocytes # 0.5 L (1.0-4.8) k/uL Sodium 134 L (137-145) mmol/L Glucose 122 H (74-99) mg/dL AST 80 H (17-59) U/L ALT 65 H (4-49) U/L Total Protein 6.1 L (6.3-8.2) g/dL Albumin 3.3 L (3.5-5.0) g/dL Assessment and Plan Plan: Covid 19 infection Bilateral pulmonary infiltrates likely representing Covid 19 pneumonia Underlying history of diabetes mellitus type 2 maintained on metformin Underlying history of hypertension Underlying history of hyperlipidemia Underlying history of benign prostatic hypertrophy Previous history of episodes of SVT in the past At this time patient will be admitted to medical floor He will be started on IV dexamethasone and subcu Lovenox Pulmonary consultation was requested Home medications reviewed and reordered Will add insulin to sliding scale Will follow patient closely
[2020-11-04] MEDS: ENOXAPARIN 40 MG/0.4 ML SYRINGE SQ SCH (14:44)
[2020-11-04 16:23] LABS: Glucose,Whole Blood 134 mg/dL (75-99)
[2020-11-04] MEDS ORDERED: ALBUTEROL NEBULIZED 2.5 MG/3 ML INHALATION PRN (18:51)
[2020-11-04 20:35] LABS: Glucose,Whole Blood 229 mg/dL (75-99)
[2020-11-04] MEDS: ASPIRIN 81 MG PO SCH (21:33)
[2020-11-04] MEDS: lisinopriL 20 MG TAB PO SCH (21:33)
[2020-11-04] MEDS: ATORVASTATIN 20 MG TAB PO SCH (21:33)
[2020-11-04] MEDS: guaiFENesin 600 MG TABLET.ER PO SCH (21:33)
[2020-11-04] MEDS: metFORMIN 500 MG TAB PO SCH (21:33)
[2020-11-05] MEDS: SODIUM CHLORIDE 0.9% 1,000 ML IV SCH (02:38)
[2020-11-05 06:54] LABS: Glucose,Whole Blood 134 mg/dL (75-99)
[2020-11-05] MEDS: ALBUTEROL HFA INHALER INHALATION PRN ×4 (07:26→19:36)
[2020-11-05] MEDS: DEXAMETHASONE SOD PHOSPHATE 10 MG/ML 1 ML VIAL IV SCH (08:08)
[2020-11-05] MEDS: ZINC SULFATE 220 MG CAP PO SCH (08:08)
[2020-11-05] MEDS: CHOLECALCIFEROL 25 MCG (1000 IU) TABLET PO SCH (08:08)
[2020-11-05] MEDS: metFORMIN 500 MG TAB PO SCH ×2 (08:08→21:43)
[2020-11-05] MEDS: MULTIVITAMINS, THERA 1 EACH TAB PO SCH (08:08)
[2020-11-05] MEDS: INSULIN ASPART (NovoLOG) 100 UNIT/ML VIAL SQ SCH ×4 (08:09→21:43)
[2020-11-05] MEDS: NON FORMULARY DRUG (Omega-3 Fatty Acids/Fish Oil [Fish Oil 1,000 Mg Softgel] 1 EACH Capsul PO SCH (08:09)
[2020-11-05] MEDS: guaiFENesin 600 MG TABLET.ER PO SCH ×2 (08:09→21:43)
[2020-11-05] MEDS: ENOXAPARIN 40 MG/0.4 ML SYRINGE SQ SCH (08:09)
[2020-11-05] MEDS: ASCORBIC ACID 500 MG TAB PO SCH (10:12)
[2020-11-05 10:47] LABS: C Reactive Protein 192.1 mg/L (<10.0)
[2020-11-05 11:16] LABS: HCT 35.1 % (39.6-50.0); HGB 11.9 g/dL (13.0-17.0); MCH 33.1 pg (27.0-32.0); MCHC 33.9 g/dL (32.0-37.0); MCV 97.5 fL (80.0-97.0); Mean Platelet Volume 10.1 fL (9.5-12.2); Platelet Count 206 X 10*3/uL (140-440); RDW 12.4 % (11.5-14.5); WBC 6.99 X 10*3/uL (4.50-10.00)
[2020-11-05 11:28] LABS: Glucose,Whole Blood 167 mg/dL (75-99)
[2020-11-05 11:57] LABS: African American GFR (CKD) 105.6 (60.0-200.0); Albumin 3.8 g/dL (3.80-4.90); Anion Gap 8.7 mmol/L (4.00-12.00); BUN/Creat Ratio 27.5 Ratio (12.00-20.00); Calcium 8.6 mg/dL (8.7-10.3); Carbon Dioxide 26.3 mmol/L (21.6-31.8); Globulin 1.9 g/dL (1.6-3.3); Non-African American GFR(CKD) 91.1 (60.0-200.0); Total Bilirubin 0.7 mg/dL (0.3-1.2); Total Protein 5.7 g/dL (6.2-8.2)
[2020-11-05 12:57] LABS: Basophils # (A) 0.01 X 10*3/uL (0.00-0.10); Basophils % (A) 0.1 %; Eosinophils # (A) 0 X 10*3/uL (0.04-0.35); Eosinophils % (A) 0 %; Lymphocytes # (A) 0.65 X 10*3/uL (0.90-5.00); Lymphocytes % (A) 9.3 %; Monocytes # (A) 0.25 X 10*3/uL (0.20-1.00); Monocytes % (A) 3.6 %; Neutrophils # (A) 6.03 X 10*3/uL (1.80-7.70); Neutrophils % (A) 86.3 %
[2020-11-05 13:55] VITALS: BMI 33.9
--- NOTE | 2020-11-05 14:18 | P.CNPUL ---
History of Present Illness Consult date: 11/05/20 Requesting physician: Bryce Barnes Reason for consult: dyspnea, cough, hypoxemia, pneumonia, abnormal CXR/CT Chief complaint: Shortness of breath. History of present illness: 70-year-old male, brought into the emergency room by EMS. The patient came in with complaints of shortness of breath. The patient apparently tested positive for COVID 19 on October 31. That was a Monday. He was notified of the positive result on the subsequent Monday. He been having symptoms for at least 7 or 10 days prior to that. He was trying to take care of himself at home with [id number] medications but unfortunately, his symptoms got so bad, he decided to come in to be evaluated. His symptoms include a primarily shortness of breath but he also had cough, body aches, and weakness. He also complained of headache. The patient also had a low-grade fever. His chest x-ray showed bilateral basilar patchy infiltrates consistent with pneumonia. Currently, the patient's on 2 L. He's feeling much better today than he did yesterday. He states that his breathing is much improved. He denies any phlegm production. His muscles are sore. He denies any further temperature elevation. White count is 6.99, hemoglobin 11.9, hematocrit 35.1, platelet count 206,000. D-dimer is 0.63. Sodium 138, potassium 5, chlorides 103, CO2 26, anion gap 8.7, BUN 22, and creatinine 0.8. Review of Systems REVIEW OF SYSTEMS: CONSTITUTIONAL: Fever, weakness, muscle aches and joint aches. NEUROLOGIC: Headache. HEENT: [ Negative.] CARDIAC: [Negative.] PULMONARY: Shortness of breath and cough. GI: [Negative.] : [Negative.] RHEUMATOLOGIC: [ Negative.] IMMUNOLOGIC: [ Negative.] ENDOCRINE: [Negative. ] DERMATOLOGIC: [Negative.] Past Medical History Past Medical History: Cancer, Chest Pain / Angina, Hyperlipidemia, Hypertension Additional Past Medical History / Comment(s): Pt tested covid + on 10/3020 at [facility] on [facility]. Other hx: NIDDM type II, SVT, skin cancer with removal from back, hayfever/sinus problems, diverticular disease, benign colon polyp removed, hypoglycemia, History of Any Multi-Drug Resistant Organisms: None Reported Past Surgical History: Heart Catheterization, Hernia Repair, Joint Replacement, Orthopedic Surgery Additional Past Surgical History / Comment(s): 04/2020 cardiac cath, 2015 cardiac cath, L knee arthroscopy then total knee replacement, umbilical hernia repair, colonoscopy with benign polypectomy, skin cancer removed from back. Past Anesthesia/Blood Transfusion Reactions: No Reported Reaction Smoking Status: Former smoker - Past Family History Father Family Medical History: Cancer Additional Family Medical History / Comment(s): PROSTATE Mother Family Medical History: Cancer Additional Family Medical History / Comment(s): COLON CANCER Brother(s) Family Medical History: Cancer Additional Family Medical History / Comment(s): COLON CA Medications and Allergies Home Medications Medication Instructions Recorded Confirmed Type Atorvastatin Calcium [Lipitor] 20 mg PO HS 02/27/15 11/04/20 History Enalapril [Vasotec] 10 mg PO HS 02/27/15 11/04/20 History Multivitamin [Men's Multi-Vitamin] 1 tab PO DAILY 02/27/15 11/04/20 History [place]-3 Fatty Acids/Fish Oil [Fish 1,000 mg PO DAILY 02/27/15 11/04/20 History Oil 1,000 mg Softgel] metFORMIN HCL 1,000 mg PO BID 08/29/18 11/04/20 History Aspirin [Adult Low Dose Aspirin EC] 81 mg PO HS 04/24/20 11/04/20 History Aspirin/Sod Bicarb/Citric Acid 1 tab PO DAILY 11/04/20 11/04/20 History [[employer] Original Tab Eff] Cholecalciferol [Vitamin D3 (25 25 mcg PO DAILY 11/04/20 11/04/20 History Mcg = 1000 Iu)] Zinc 50 mg PO DAILY 11/04/20 11/04/20 History Allergies Allergy/AdvReac Type Severity Reaction Status Date / Time No Known Allergies Allergy Verified 11/04/20 12:42 Physical Exam Osteopathic Statement: *. No significant issues noted on an osteopathic structural exam other than those noted in the History and Physical/Consult. Vitals: Vital Signs Temp Pulse Resp BP Pulse Ox 11/05/20 13:57 97.6 F 78 18 102/58 95 11/05/20 10:00 97.7 F 78 18 103/64 94 L 11/05/20 05:50 98.1 F 62 16 115/69 92 L 11/05/20 02:30 98.0 F 63 16 114/73 94 L 11/04/20 22:00 98.0 F 64 17 120/72 95 11/04/20 20:00 64 17 11/04/20 16:53 97.6 F 82 18 118/62 95 11/04/20 15:09 98.6 F 60 18 117/69 94 L Intake and Output 11/04/20 11/05/20 11/05/20 22:59 06:59 14:59 Intake Total 160 Balance 160 Intake: IV 160 Sodium Chloride 0.9% 1, 160 000 ml @ 20 mls/hr IV . Q24H SHAWNA Rx#:[id number] Other: # Voids 3 2 Weight 113.398 kg No acute distress, oriented 3. Nasal O2 at 2 L. HEENT examination is grossly unremarkable. Mucous membranes are moist. No oral lesions. Neck supple. Full range of motion. No adenopathy thyromegaly or neck vein distention. Cardiovascular examination reveals regular rhythm rate. S1-S2 normal. No S3 or S4. No discernible murmur noted. HR is 78 bpm. Lungs reveal mild coarse rhonchi. A few scattered crackles are noted. No wheezes. Breath sounds equal bilaterally. The patient does cough with deep inspiration. Abdomen soft bowel sounds are heard. No masses or tenderness. Extremities are intact. No cyanosis clubbing or edema. Skin is without rash or lesion. Neurologic examination is brief but nonfocal. Results - Laboratory Findings CBC and BMP: 11/05/20 06:31 11/05/20 06:31 PT/INR, D-dimer D-Dimer 0.63 mg/L FEU (<0.60) H 11/05/20 10:19 Abnormal lab findings: Abnormal Labs 11/04/20 11/04/20 11/04/20 12:14 12:14 14:32 RBC 3.78 L Hgb 12.5 L Hct 36.4 L MCV MCH Immature Gran # Neutrophils # 7.9 H Lymphocytes # 0.5 L Eosinophils # D-Dimer Sodium 134 L BUN/Creatinine Ratio Glucose 122 H POC Glucose (mg/dL) Calcium AST 80 H ALT 65 H Lactate Dehydrogenase C-Reactive Protein Total Protein 6.1 L Albumin 3.3 L Coronavirus (PCR) Detected A 11/04/20 11/04/20 11/05/20 16:21 20:33 06:31 RBC 3.60 L Hgb 11.9 L Hct 35.1 L MCV 97.5 H MCH 33.1 H Immature Gran # 0.05 H Neutrophils # Lymphocytes # 0.65 L Eosinophils # 0 L D-Dimer Sodium BUN/Creatinine Ratio Glucose POC Glucose (mg/dL) 134 H 229 H Calcium AST ALT Lactate Dehydrogenase C-Reactive Protein Total Protein Albumin Coronavirus (PCR) 11/05/20 11/05/20 11/05/20 06:31 06:52 10:19 RBC Hgb Hct MCV MCH Immature Gran # Neutrophils # Lymphocytes # Eosinophils # D-Dimer 0.63 H Sodium BUN/Creatinine Ratio 27.50 H Glucose 143 H POC Glucose (mg/dL) 134 H Calcium 8.6 L AST 84 H ALT 87 H Lactate Dehydrogenase C-Reactive Protein Total Protein 5.7 L Albumin Coronavirus (PCR) 11/05/20 11/05/20 10:19 11:25 RBC Hgb Hct MCV MCH Immature Gran # Neutrophils # Lymphocytes # Eosinophils # D-Dimer Sodium BUN/Creatinine Ratio Glucose POC Glucose (mg/dL) 167 H Calcium AST ALT Lactate Dehydrogenase 974 H C-Reactive Protein 192.1 H Total Protein Albumin Coronavirus (PCR) - Diagnostic Findings Chest x-ray: image reviewed Assessment and Plan Assessment: COVID 19 pneumonia, with mild/moderate hypoxemic respiratory failure. History of hyperlipidemia. History of hypertension. History of chronic sinus disease. History of skin cancer. History of diverticular disease. History of diabetes mellitus. Plan: Plan dated 11/05/2020. Currently, the patient's on appropriate medications including an albuterol inhaler, vitamin C, vitamin D3, Decadron, Mucinex, zinc, and his usual medications. He is much better today than he was yesterday. We'll continue to follow the patient closely. One might consider melatonin and Pepcid. It is not absolutely essential. The patient is beyond the window for remdesivir. We will continue to follow this patient and make recommendations were necessary. Prognosis is guarded. Time with Patient: Greater than 30
[2020-11-05 16:46] LABS: Glucose,Whole Blood 186 mg/dL (75-99)
--- NOTE | 2020-11-05 16:46 | P.PN ---
Subjective Progress Note Date: 11/05/20 Antonino Latham, is a 70-year-old male patient of Dr. Melvin, who presented to [facility] emergency room with a chief complaint of worsening shortness of breath. Patient stated that he started having cough and upper respiratory congestion about 10 days ago, he went to [facility] and was tested for Covid 19 and his test was positive, he had mild symptoms initially however he developed worsening shortness of breath and decided to come to emergency room. Patient was evaluated in the emergency room his vital examination on presentation revealed a temperature of 100 pulse 80 respiration 18 blood pressure 122/80 pulse ox 93% on 2 L nasal cannula his white blood count was 8.7 hemoglobin 12.5 platelet count 192 sodium 138 potassium 4.2 chloride 100 CO2 24 BUN 19 creatinine 0.85 glucose 122 AST elevated at 80 ALT 65 troponin level at 0.014 chest x-ray done in the emergency room and revealed evidence of patchy basilar infiltrates patient was admitted to telemetry floor pulmonary consultati on was requested he was started on IV steroids and subcutaneous Lovenox. 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 He denies any history of coronary artery disease myocardial infarction or congestive heart failure in the past. He denies any history of asthma or emphysema he states he never smoked. On review of systems patient is complaining of occasional cough and complaining of shortness of breath otherwise he denies any complaints there is no fever or chills no headache or dizziness no chest pain no palpitation no nausea or vomiting no abdominal pain no diarrhea no blood in the stools no burning with urination no frequency or urgency and no hematuria. On 11/05/2020 patient was seen and examined on the medical floor he is alert and oriented 3 in no apparent distress he is reporting improvement in his shortness of breath and cough otherwise he denies any other complaints there is no fever or chills no headache or dizziness no chest pain no palpitation no nausea or vomiting no abdominal pain no diarrhea no blood in the stools no burning with urination no frequency or urgency and no hematuria Objective - Vital Signs Vital signs: Vital Signs Temp 98.1 F 02/04/21 05:50 Pulse 62 11/05/20 05:50 Resp 16 11/05/20 05:50 BP 115/69 11/05/20 05:50 Pulse Ox 92 L 11/05/20 05:50 Intake & Output 11/04/20 11/05/20 11/05/20 18:59 06:59 18:59 Intake Total 20 Balance 20 Weight 113.398 kg Intake: Amount of Fluid Infused ( 20 ml) Other: # Voids 3 2 - Exam In general patient is alert and oriented 3 in no apparent distress HEENT head normocephalic and atraumatic Neck is supple no JVD no goiter no lymphadenopathy Chest exam reveals crackles in both lung bases no wheezing Cardiac exam reveals regular heart sounds S1 and S2 no gallops no murmurs Abdomen is soft nontender no organomegaly with normal bowel sounds Extremity exam reveals no edema no cyanosis or clubbing Neurological examination reveals, no gross focal neurological deficits - Labs CBC & Chem 7: 11/05/20 06:31 11/05/20 06:31 Labs: Abnormal Lab Results - Last 24 Hours (Table) 11/04/20 11/04/20 11/04/20 Range/Units 12:14 12:14 14:32 RBC 3.78 L (4.30-5.90) m/uL Hgb 12.5 L (13.0-17.5) gm/dL Hct 36.4 L (39.0-53.0) % Neutrophils # 7.9 H (1.3-7.7) k/uL Lymphocytes # 0.5 L (1.0-4.8) k/uL Sodium 134 L (137-145) mmol/L Glucose 122 H (74-99) mg/dL POC Glucose (mg/dL) (75-99) mg/dL AST 80 H (17-59) U/L ALT 65 H (4-49) U/L Total Protein 6.1 L (6.3-8.2) g/dL Albumin 3.3 L (3.5-5.0) g/dL Coronavirus (PCR) Detected A (Not Detectd) 11/04/20 11/04/20 11/05/20 Range/Units 16:21 20:33 06:52 RBC (4.30-5.90) m/uL Hgb (13.0-17.5) gm/dL Hct (39.0-53.0) % Neutrophils # (1.3-7.7) k/uL Lymphocytes # (1.0-4.8) k/uL Sodium (137-145) mmol/L Glucose (74-99) mg/dL POC Glucose (mg/dL) 134 H 229 H 134 H (75-99) mg/dL AST (17-59) U/L ALT (4-49) U/L Total Protein (6.3-8.2) g/dL Albumin (3.5-5.0) g/dL Coronavirus (PCR) (Not Detectd) Assessment and Plan Plan: Covid 19 infection Bilateral pulmonary infiltrates likely representing Covid 19 pneumonia, with acute hypoxic respiratory failure Underlying history of diabetes mellitus type 2 maintained on metformin Underlying history of hypertension Underlying history of hyperlipidemia Underlying history of benign prostatic hypertrophy Previous history of episodes of SVT in the past At this time patient will be admitted to medical floor He will be started on IV dexamethasone and subcu Lovenox Pulmonary consultation was requested Home medications reviewed and reordered Will add insulin to sliding scale Will follow patient closely
[2020-11-05 21:07] LABS: Glucose,Whole Blood 168 mg/dL (75-99)
[2020-11-05] MEDS: ATORVASTATIN 20 MG TAB PO SCH (21:43)
[2020-11-05] MEDS: ASPIRIN 81 MG PO SCH (21:43)
[2020-11-05] MEDS: lisinopriL 20 MG TAB PO SCH (21:43)
[2020-11-06 07:10] LABS: Glucose,Whole Blood 125 mg/dL (75-99)
[2020-11-06] MEDS: INSULIN ASPART (NovoLOG) 100 UNIT/ML VIAL SQ SCH ×3 (07:36→17:08)
[2020-11-06] MEDS: ALBUTEROL HFA INHALER INHALATION PRN ×3 (07:49→15:44)
[2020-11-06] MEDS: NON FORMULARY DRUG (Omega-3 Fatty Acids/Fish Oil [Fish Oil 1,000 Mg Softgel] 1 EACH Capsul PO SCH (08:30)
[2020-11-06] MEDS: MULTIVITAMINS, THERA 1 EACH TAB PO SCH (08:31)
[2020-11-06] MEDS: ZINC SULFATE 220 MG CAP PO SCH (08:31)
[2020-11-06] MEDS: CHOLECALCIFEROL 25 MCG (1000 IU) TABLET PO SCH (08:31)
[2020-11-06] MEDS: guaiFENesin 600 MG TABLET.ER PO SCH (08:31)
[2020-11-06] MEDS: ASCORBIC ACID 500 MG TAB PO SCH (08:32)
[2020-11-06] MEDS: metFORMIN 500 MG TAB PO SCH (08:32)
[2020-11-06] MEDS: DEXAMETHASONE SOD PHOSPHATE 10 MG/ML 1 ML VIAL IV SCH (08:32)
[2020-11-06] MEDS: ENOXAPARIN 40 MG/0.4 ML SYRINGE SQ SCH (08:33)
[2020-11-06 10:10] LABS: C Reactive Protein 9.4 mg/dL (0.0-0.8)
[2020-11-06 11:51] LABS: Glucose,Whole Blood 136 mg/dL (75-99)
[2020-11-06 12:10] VITALS: RESP 16; TEMP 97.6
[2020-11-06] MEDS: SODIUM CHLORIDE 0.9% 1,000 ML IV SCH (12:55)
--- NOTE | 2020-11-06 13:11 | P.PN ---
Subjective Progress Note Date: 11/06/20 70-year-old male, brought into the emergency room by EMS. The patient came in with complaints of shortness of breath. The patient apparently tested positive for COVID 19 on October 31. That was a Monday. He was notified of the positive result on the subsequent Monday. He been having symptoms for at least 7 or 10 days prior to that. He was trying to take care of himself at home with [id number] medications but unfortunately, his symptoms got so bad, he decided to come in to be evaluated. His symptoms include a primarily shortness of breath but he also had cough, body aches, and weakness. He also complained of headache. The patient also had a low-grade fever. His chest x-ray showed bilateral basilar patchy infiltrates consistent with pneumonia. Currently, the patient's on 2 L. He's feeling much better today than he did yesterday. He states that his breathing is much improved. He denies any phlegm production. His muscles are sore. He denies any further temperature elevation. White count is 6.99, hemoglobin 11.9, hematocrit 35.1, platelet count 206,000. D-dimer is 0.63. Sodium 138, potassium 5, chlorides 103, CO2 26, anion gap 8.7, BUN 22, and creatinine 0.8. On 11/06/2020 patient seen in follow-up on medical floor, doing well, feeling better, he is currently on 2 L of oxygen pulse ox of 95%, no fever or chills, vital signs have been stable, denies any acute distress, no new chest x-ray, today's labs have been reviewed showing d-dimer of 2.81, and FiO2 markers have significantly improved, with LDH down to 351, and CRP of 9.4, pro calcitonin level was low at 0.10. She has had no fever or chills. Objective - Vital Signs Vital signs: Vital Signs Temp 97.6 F 11/06/20 10:00 Pulse 70 11/06/20 10:00 Resp 16 11/06/20 10:00 BP 126/76 11/06/20 10:00 Pulse Ox 95 11/06/20 10:00 Intake & Output 11/05/20 11/06/20 11/06/20 18:59 06:59 18:59 Intake Total 160 Balance 160 Weight 113.398 kg Intake: IV 160 Sodium Chloride 0.9% 1, 160 000 ml @ 20 mls/hr IV . Q24H [facility] Rx#:[id number] Other: # Voids 1 2 - Exam GENERAL EXAM: Alert, very pleasant, 61-year-old white male, 2 L of oxygen comfortable in no apparent distress. HEAD: Normocephalic/atraumatic. EYES: Normal reaction of pupils, equal size. Conjunctiva pink, sclera white. NOSE: Clear with pink turbinates. THROAT: No erythema or exudates. NECK: No masses, no JVD, no thyroid enlargement, no adenopathy. CHEST: No chest wall deformity. Symmetrical expansion. LUNGS: Equal air entry with no crackles, wheeze, rhonchi or dullness. CVS: Regular rate and rhythm, normal S1 and S2, no gallops, no murmurs, no rubs ABDOMEN: Soft, nontender. No hepatosplenomegaly, normal bowel sounds, no guarding or rigidity. EXTREMITIES: No clubbing, no edema, no cyanosis, 2+ pulses and upper and lower extremities. MUSCULOSKELETAL: Muscle strength and tone normal. SPINE: No scoliosis or deformity SKIN: No rashes CENTRAL NERVOUS SYSTEM: Alert and oriented -3. No focal deficits, tone is normal in all 4 extremities. PSYCHIATRIC: Alert and oriented -3. Appropriate affect. Intact judgment and insight. - Labs CBC & Chem 7: 11/05/20 06:31 11/05/20 06:31 Labs: Abnormal Lab Results - Last 24 Hours (Table) 11/05/20 11/05/20 11/05/20 Range/Units 10:19 16:45 21:04 D-Dimer (<0.60) mg/L FEU POC Glucose (mg/dL) 186 H 168 H (75-99) mg/dL Lactate Dehydrogenase (120-246) U/L C-Reactive Protein (0.0-0.8) mg/dL Procalcitonin 0.13 H (0.02-0.09) ng/mL 11/06/20 11/06/20 11/06/20 Range/Units 06:00 06:00 06:04 D-Dimer 2.81 H (<0.60) mg/L FEU POC Glucose (mg/dL) (75-99) mg/dL Lactate Dehydrogenase 351 H (120-246) U/L C-Reactive Protein 9.4 H (0.0-0.8) mg/dL Procalcitonin 0.10 H (0.02-0.09) ng/mL 11/06/20 11/06/20 Range/Units 07:09 11:50 D-Dimer (<0.60) mg/L FEU POC Glucose (mg/dL) 125 H 136 H (75-99) mg/dL Lactate Dehydrogenase (120-246) U/L C-Reactive Protein (0.0-0.8) mg/dL Procalcitonin (0.02-0.09) ng/mL Microbiology - Last 24 Hours (Table) 11/04/20 12:14 Blood Culture - Preliminary Blood No Growth after 24 hours Assessment and Plan Plan: Assessment: COVID 19 pneumonia, with mild/moderate hypoxemic respiratory failure. History of hyperlipidemia. History of hypertension. History of chronic sinus disease. History of skin cancer. History of diverticular disease. History of diabetes mellitus. Plan: Continue current medical treatment, and current dose of Lovenox, vitamins, as tolerated, inflammatory markers are improving, breathing comfortably, he is feeling better, we'll continue to follow I performed a history & physical examination of the patient and discussed their management with my nurse practitioner, Annalise Torres. I reviewed the nurse practitioner's note and agree with the documented findings and plan of care. Lung sounds are positive for diminished breath sounds. The findings and the impression was discussed with the patient. I attest to the documentation by the nurse practitioner. Time with Patient: Less than 30
[2020-11-06 14:25] LABS: Hemoglobin A1C 6.6 % (4.0-6.0)
[2020-11-06 15:55] VITALS: BP 119/74; PULSE 76
--- NOTE | 2020-11-06 16:32 | P.DS ---
Providers Date of admission: 11/04/20 14:06 Expected date of discharge: 11/06/20 Attending physician: Bryce Barnes Consults: 11/04/20 13:09 Consult Physician Stat Consulting Provider: Uli Martínez Reason/Comments: Covid 19 pneumonia Do you want consulting provider notified?: Yes Primary care physician: Reyna Melvin [facility] Course: Diagnosis on discharge: 1. Covid 19 infection 2. Bilateral pulmonary infiltrates likely representing Covid 19 pneumonia, with acute hypoxic respiratory failure 3. Underlying history of diabetes mellitus type 2 maintained on metformin 4. Underlying history of hypertension 5. Underlying history of hyperlipidemia 6. Underlying history of benign prostatic hypertrophy 7. Previous history of episodes of SVT in the past hospital course: Antonino Latham, is a 70-year-old male patient of Dr. Melvin, who presented to [facility] emergency room with a chief complaint of worsening shortness of breath. Patient stated that he started having cough and upper respiratory congestion about 10 days ago, he went to [facility] and was tested for Covid 19 and his test was positive, he had mild symptoms initially however he developed worsening shortness of breath and decided to come to emergency room. Patient was evaluated in the emergency room his vital examination on presentation revealed a temperature of 100 pulse 80 respiration 18 blood pressure 122/80 pulse ox 93% on 2 L nasal cannula his white blood count was 8.7 hemoglobin 12.5 platelet count 192 sodium 138 potassium 4.2 chloride 100 CO2 24 BUN 19 creatinine 0.85 glucose 122 AST elevated at 80 ALT 65 troponin level at 0.014 chest x-ray done in the emergency room and revealed evidence of patchy basilar infiltrates patient was admitted to telemetry floor pulmonary consultation was requested he was started on IV steroids and subcutaneous Lovenox. 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 He denies any history of coronary artery disease myocardial infarction or congestive heart failure in the past. He denies any history of asthma or emphysema he states he never smoked. On review of systems patient is complaining of occasional cough and complaining of shortness of breath otherwise he denies any complaints there is no fever or chills no headache or dizziness no chest pain no palpitation no nausea or vomiting no abdominal pain no diarrhea no blood in the stools no burning with urination no frequency or urgency and no hematuria. On 11/05/2020 patient was seen and examined on the medical floor he is alert and oriented 3 in no apparent distress he is reporting improvement in his shortness of breath and cough otherwise he denies any other complaints there is no fever or chills no headache or dizziness no chest pain no palpitation no nausea or vomiting no abdominal pain no diarrhea no blood in the stools no burning with urination no frequency or urgency and no hematuria On 11/06/2020 patient was seen and examined on the medical floor he is alert and oriented 3 in no apparent distress his oxygen requirements are down to 2-3 L/m he was evaluated by pulmonary and was cleared for discharge on review of systems there is no fever or chills no headache or dizziness no chest pain he has mild shortness of breath with activity, no palpitation no nausea or vomiting no abdominal pain no diarrhea no blood in the stools no burning with urination no frequency or urgency and no hematuria. At this time will arrange for home oxygen, patient can be discharged home today, prescriptions for dexamethasone, albuterol inhaler and Mucinex given to patient. Follow-up with Dr. Martínez in 1-2 weeks Follow-up was primary care physician within one week Patient Condition at Discharge: Stable Plan - Discharge Summary Discharge Rx Participant: No New Discharge Prescriptions: New dexAMETHasone [Hexadrol] 6 mg PO DAILY tab guaiFENesin [Mucinex] 600 mg PO Q12HR tablet.er Albuterol Inhaler [Ventolin Hfa Inhaler] 2 puff INHALATION RT-QID PRN puff PRN Reason: Shortness Of Breath Or Wheezing Ascorbic Acid [Vitamin C] 1,000 mg PO DAILY tab Continue Enalapril [Vasotec] 10 mg PO HS Atorvastatin Calcium [Lipitor] 20 mg PO HS [place]-3 Fatty Acids/Fish Oil [Fish Oil 1,000 mg Softgel] 1,000 mg PO DAILY Multivitamin [Men's Multi-Vitamin] 1 tab PO DAILY metFORMIN HCL 1,000 mg PO BID Aspirin [Adult Low Dose Aspirin EC] 81 mg PO HS Cholecalciferol [Vitamin D3 (25 Mcg = 1000 Iu)] 25 mcg PO DAILY Zinc 50 mg PO DAILY Aspirin/Sod Bicarb/Citric Acid [Beat[place] Original Tab Eff] 1 tab PO DAILY Discharge Medication List Atorvastatin Calcium [Lipitor] 20 mg PO HS 02/27/15 [History] Enalapril [Vasotec] 10 mg PO HS 02/27/15 [History] Multivitamin [Men's Multi-Vitamin] 1 tab PO DAILY 02/27/15 [History] [place]-3 Fatty Acids/Fish Oil [Fish Oil 1,000 mg Softgel] 1,000 mg PO DAILY 02/27/15 [History] metFORMIN HCL 1,000 mg PO BID 08/29/18 [History] Aspirin [Adult Low Dose Aspirin EC] 81 mg PO HS 04/24/20 [History] Aspirin/Sod Bicarb/Citric Acid [[place] Original Tab Eff] 1 tab PO DAILY 11/04/20 [History] Cholecalciferol [Vitamin D3 (25 Mcg = 1000 Iu)] 25 mcg PO DAILY 11/04/20 [History] Zinc 50 mg PO DAILY 11/04/20 [History] Albuterol Inhaler [Ventolin Hfa Inhaler] 2 puff INHALATION RT-QID PRN puff 11/06/20 [Rx] Ascorbic Acid [Vitamin C] 1,000 mg PO DAILY tab 11/06/20 [Rx] dexAMETHasone [Hexadrol] 6 mg PO DAILY tab 11/06/20 [Rx] guaiFENesin [Mucinex] 600 mg PO Q12HR tablet.er 11/06/20 [Rx] Follow up Appointment(s)/Referral(s): Reyna Melvin MD [Primary Care Provider] - 1-2 days Patient Instructions/Handouts: Coronavirus Disease 2019 (COVID-19)
[2020-11-07] MEDS ORDERED: dexAMETHasone 2 MG TAB PO SCH (09:00)
== END 2020-11-06 17:38 | disposition home or self-care (01) | DRG 177 ==
LOC: EC 11:43 → 4SSUR 14:06
PROVIDERS: ADMIT Internal Medicine; ATTEND Internal Medicine
DX: U07.1 COVID-19 (principal); J12.82 Pneumonia due to coronavirus disease 2019; J96.01 Acute respiratory failure with hypoxia; E11.9 Type 2 diabetes mellitus without complications; N40.0 Benign prostatic hyperplasia without lower urinary tract symptoms; I10 Essential (primary) hypertension; Z96.652 Presence of left artificial knee joint; E78.5 Hyperlipidemia, unspecified; Z98.890 Other specified postprocedural states; Z79.899 Other long term (current) drug therapy; Z79.84 Long term (current) use of oral hypoglycemic drugs; Z79.82 Long term (current) use of aspirin; Z85.828 Personal history of other malignant neoplasm of skin; Z86.010 Personal history of colon polyps; Z87.19 Personal history of other diseases of the digestive system; Z87.891 Personal history of nicotine dependence; Z80.0 Family history of malignant neoplasm of digestive organs; Z80.42 Family history of malignant neoplasm of prostate
CPT/HCPCS: 36415; 71045; 80053; 83036; 83605; 83615; 84145; 84484; 85025; 85379; 86140; 87040; 87635; 93005; 94640; 96372; 96374; 99291

== ENCOUNTER → 2021-09-09 | Outpatient (CLI) | payer MEDICARE ==
--- NOTE | 2021-09-09 14:44 | US ---
EXAMINATION TYPE: US venous doppler duplex LE RT DATE OF EXAM: 09/09/2021 2:25 PM COMPARISON: NONE CLINICAL HISTORY: M79.604 Pain in right leg. SIDE PERFORMED: Right TECHNIQUE: The lower extremity deep venous system is examined utilizing real time linear array sonog tamera with graded compression, doppler sonography and color-flow sonography. VESSELS IMAGED: Common Femoral Vein Deep Femoral Vein Greater Saphenous Vein * Femoral Vein Popliteal Vein Small Saphenous Vein * Proximal Calf Veins (* superficial vessels) Right Leg: Negative for DVT IMPRESSION: No evidence for DVT.
== END | disposition home or self-care (01) ==
LOC: RADUSWWP 14:00
PROVIDERS: ATTEND Family Medicine
DX: M79.604 Pain in right leg (principal)

== ENCOUNTER → 2023-07-11 | Outpatient (CLI) | payer MEDICARE ==
--- NOTE | 2023-07-11 15:14 | CONS ---
CONSULTATION REASON FOR CONSULTATION: Sleep apnea. HISTORY OF PRESENT ILLNESS: A 72-year-old male patient referred to me for sleep apnea evaluation. His son-in-law, who is a urologist also at [facility], has suspected sleep apnea based on his reported symptoms of witnessed apneas, loud snoring, sleep fragmentation, and chronic fatigue in sleepiness. 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 At times, he gets quite sleepy and he struggles to stay awake. No history of any motor vehicle accidents because of feeling drowsy or sleepy. No recent weight gain. He wakes up tired during the day despite averaging around 7 hours of sleep. He goes to bed around 11 p.m. and wakes up at 6 a.m. in the morning. He has problems with concentration and level of attention during the day. He can easily fall asleep and take a nap, and he loves taking naps. He occasionally wakes up choking and gasping for air. As such, there is a high possibility of him having obstructive sleep apnea. No sleep paralysis, hallucinations, or cataplexy. No sleepwalking or sleep talking. No parasomnias. PAST MEDICAL HISTORY: Hypertension, hyperlipidemia, and diabetes mellitus. PAST SURGICAL HISTORY: The patient has undergone left knee surgery and umbilical hernia repair. DRUG ALLERGIES: Not known. OUTPATIENT MEDICATIONS: Include, 1. Metformin 1 g twice a day. 2. Lipitor 20 once a day. 3. Enalapril 10 mg once a day. SOCIAL HISTORY: No history of smoking. No alcohol. No substance abuse. No coffee drinking. FAMILY HISTORY: Positive for hypertension and hyperlipidemia in his parents, diabetes mellitus and acid reflux also run in his parents. REVIEW OF SYSTEMS: Twelve-point review of system was done. The patient's weight has remained stable over the past one year. No sleep paralysis. No hallucinations. No cataplexy. The patient prefers to sleep on his side and does not watch television in his bedroom. No grinding of the teeth. He has had dentures and he has no active symptoms of TMJ at this point in time. Occasional heartburns are present. Nevertheless, this is not at nighttime. No nighttime shortness of breath or chest pain. No restlessness in lower extremities. No history of stroke. No cardiovascular disease such as CAD, congestive heart failure, or atrial fibrillation. No swelling in lower extremities. PHYSICAL EXAMINATION: VITAL SIGNS: BP is 147/86 with a pulse of 60, respirations 16, temperature 98.0, saturation 96% on room air, weight is 260, height is 5 feet 10 inches, and body mass index is 37.3 with a neck size of 18-3/4 of an inch with an Bertram score of 20. Pulse ox 96% on room air. GENERAL APPEARANCE: Calm and comfortable. HEAD: Atraumatic, normocephalic. NECK: Supple. There is no JVD. No goiter or neck masses. The patient has a Mallampati class 4 with significant crowding of posterior pharynx. LUNGS: Clear to auscultation. HEART: Sounds are regular rate and rhythm. Normal S1, S2. No S3 or S4. No murmurs. ABDOMEN: Soft, nontender. No organomegaly. EXTREMITIES: No edema. No cyanosis or clubbing. NEUROLOGIC: Awake and alert. There is no focal neurological deficit. ASSESSMENT: 1. Chronic hypersomnia. Bertram score of 20 with high clinical suspicion for obstructive sleep apnea. The patient has loud snoring, witnessed apneas, sleep fragmentation along with chronic hypersomnia in sleepiness. On examination, the patient has a Mallampati class 4 with significant crowding of posterior pharynx. 2. Obesity with a body mass index of 37.3. 3. Hypertension. 4. Hyperlipidemia. 5. Diabetes mellitus. PLAN: Proceed with screening polysomnography to evaluate the patient for obstructive sleep apnea. Encourage weight loss. Maintain adequate sleep hygiene measures and maintain regular sleep schedule. We will continue to follow and make further recommendations based on his overall progress. MMODL / IJN: [id number] /
== END ==
LOC: 3 N SLEEP 13:07
PROVIDERS: ATTEND Internal Medicine Critical Care Medicine
DX: G47.10 Hypersomnia, unspecified (principal); E66.9 Obesity, unspecified; I10 Essential (primary) hypertension; E11.9 Type 2 diabetes mellitus without complications; E78.5 Hyperlipidemia, unspecified; Z68.37 Body mass index [BMI] 37.0-37.9, adult; Z79.84 Long term (current) use of oral hypoglycemic drugs; Z79.899 Other long term (current) drug therapy; Z87.891 Personal history of nicotine dependence
CPT/HCPCS: 99211

== ENCOUNTER 2023-08-20 19:32 | Outpatient (CLI) | payer MEDICARE ==
--- NOTE | 2023-08-22 19:31 | SLS ---
SLEEP STUDY STUDY PERFORMED: Polysomnography. HISTORY OF PRESENT ILLNESS: A 73-year-old male patient, referred to me for sleep apnea evaluation. The patient has an [place] score of 20, and he suffers from chronic hypersomnia and sleepiness. He has loud snoring, witnessed apneas, and sleep fragmentation in addition to chronic sleepiness. He has hypertension, hyperlipidemia, and diabetes mellitus as comorbidities. PERTINENT PHYSICAL FINDINGS: His weight is 260 pounds with a body mass index of 37.3, and height is 5 feet 10 inches. TECHNICAL DESCRIPTION: The sleep evaluation of the patient consisted of clinical polysomnography, nocturnal respiratory battery, left and right anterior tibialis surface electromyography. The standard montage for the clinical polysomnography included the EEG, EOG, EMG, and EKG. Respiratory battery included measurements of nasal/buccal airflow, thoracic, and/or abdominal effort and intercostal surface EMG. Nocturnal oxyhemoglobin saturations were obtained by finger oximetry. Digital video and audio monitoring were done throughout the entire night to check or parasomnias. SLEEP ARCHITECTURE: Total time in bed was 405.0 minutes. Total sleep time was 360.0 minutes. The latency to sleep onset was 9 minutes. The latency to REM sleep was 130.5 minutes. The sleep architecture was characterized by 4.6% stage I, 67.6% stage II, 0% stage III, and 29.4% REM sleep. The wake after sleep onset time was 38 minutes. Overall sleep efficiency was 88.9%. RESULTS: The respiratory analysis showed a total of 96 obstructive events, of which, 3 were obstructive apneas, 1 was mixed apnea, and 92 were obstructive hypopneas. The resulting apnea-hypopnea index was 12.8. No central apneas were noted. The respiratory arousal index was 0. OXYGENATION ANALYSIS: The baseline oxygen saturation was 93%. Lowest pulse ox was 83%, and the patient spent approximately 4 minutes of the sleep time below pulse ox of 89%. ASSESSMENT: 1. Obstructive sleep apnea, symptomatic. The patient has mild obstructive sleep apnea, and the respiratory events are essentially in the form of obstructive hypopneas. The AHI was 12.8. 2. Chronic hypersomnia, [place] score of 20. 3. Loud snoring. 4. Diabetes. 5. Hypertension. 6. Hyperlipidemia. PLAN: Recommend CPAP titration for this patient. The patient will be asked to come back to [facility] Center to undergo a CPAP titration regarding his symptomatic obstructive sleep apnea. We will continue to follow. HERMES / KVNGN: [id number] /
== END 2023-08-21 05:20 | disposition home or self-care (01) ==
LOC: 3 N SLEEP 19:32
PROVIDERS: ATTEND Internal Medicine Critical Care Medicine
DX: G47.33 Obstructive sleep apnea (adult) (pediatric) (principal); G47.10 Hypersomnia, unspecified; E11.9 Type 2 diabetes mellitus without complications; I10 Essential (primary) hypertension; E78.5 Hyperlipidemia, unspecified; Z79.899 Other long term (current) drug therapy; Z79.82 Long term (current) use of aspirin; Z79.84 Long term (current) use of oral hypoglycemic drugs; Z87.891 Personal history of nicotine dependence
CPT/HCPCS: 95810

== ENCOUNTER 2023-09-18 19:37 | Outpatient (CLI) | payer MEDICARE ==
--- NOTE | 2023-10-04 00:02 | SLS ---
SLEEP STUDY STUDY PERFORMED: CPAP titration report. HISTORY OF PRESENT ILLNESS: This patient is 73, complaining of excessive hypersomnia with an [place] score of 20. The patient underwent a screening polysomnography and the patient was found to have an AHI of 12.8 consistent with mild disease. Nevertheless, the patient was excessively symptomatic and opted for CPAP therapy. The patient is coming in for CPAP titration. PERTINENT PHYSICAL FINDINGS: Height is 5 feet 10 inches, weight is 260, BMI is 37.3. TECHNICAL DESCRIPTION: The sleep evaluation of the patient consisted of clinical polysomnography, nocturnal respiratory battery, left and right anterior tibialis surface electromyography. The standard montage for the clinical polysomnography included the EEG, EOG, EMG, and EKG. Respiratory battery included measurements of nasal/buccal airflow, thoracic, and/or abdominal effort and intercostal surface EMG. Nocturnal oxyhemoglobin saturations were obtained by finger oximetry. Digital video and audio monitoring were done throughout the entire night to check or parasomnias. Step-urbano titration with positive airway pressure was utilized during the study to control the respiratory events. SLEEP ARCHITECTURE: Total time in bed was 390.5 minutes. Total sleep time was 350 minutes and the sleep efficiency was 89.6%. Latency to sleep onset was 7 minutes and latency to REM sleep was 13.7 minutes. The sleep architecture was characterized by 3.3% stage I, 85.6% stage II, 0.4% stage III, and 13.7% REM sleep. Wake after sleep onset time was 36.5. Total arousal index was 3.4. CPAP TITRATION SUMMARY: The patient was started on CPAP therapy initially at a pressure of 5 cm of water and pressure was gradually increased by increments of 1 cm to reach a maximum pressure of 12 cm of water. I carefully reviewed the CPAP titration taking into account the patient's sleep stage and body position. Note that the patient was studied in all sleep stages including REM and non-REM sleep. The patient was studied in various body positions including supine body position. Based on my review, the patient will be started on a CPAP pressure of 11 cm of water. At that level of pressure, there were no significant obstructive respiratory events or desaturations. CARDIAC SUMMARY: Average heart rate was 64. Minimum heart rate was 60. Maximum heart rate was 69. Rhythm was sinus. PERIODIC LIMB MOVEMENT ACTIVITY: The patient had a total of 82 periodic limb movement activity with an index of 14. No periodic limb movement activity causing arousals. SLEEP CONTINUITY SUMMARY: The patient had a total of 20 arousals with an index of 3.4. Respiratory arousal index was 0. ASSESSMENT: 1. Symptomatic obstructive sleep apnea mild with an AHI of 12.8 at baseline. The patient underwent a successful CPAP titration. 2. Chronic hypersomnia. [place] score of 20. 3. Diabetes mellitus type 2. 4. Hypertension. 5. Hyperlipidemia. 6. Obesity with a BMI of 37.3. PLAN: Initiate CPAP therapy at a pressure of 11 cm of water with a C-flex of 3. The patient will be given an AirFit F20 full-face mask, medium size. Encourage weight loss. Optimize sleep hygiene measures. Maintain regular sleep schedule. See me back in the office in 30 to 90 days to assess clinical response and compliancy. HERMES / LUZ: [id number] /
== END 2023-09-19 05:30 | disposition home or self-care (01) ==
LOC: 3 N SLEEP 19:37
PROVIDERS: ATTEND Internal Medicine Critical Care Medicine
DX: G47.33 Obstructive sleep apnea (adult) (pediatric) (principal); G47.10 Hypersomnia, unspecified; E11.9 Type 2 diabetes mellitus without complications; I10 Essential (primary) hypertension; E78.5 Hyperlipidemia, unspecified; E66.9 Obesity, unspecified; Z68.37 Body mass index [BMI] 37.0-37.9, adult; Z99.89 Dependence on other enabling machines and devices; Z79.84 Long term (current) use of oral hypoglycemic drugs; Z79.4 Long term (current) use of insulin; Z79.82 Long term (current) use of aspirin; Z87.891 Personal history of nicotine dependence
CPT/HCPCS: 95811

== ENCOUNTER → 2023-11-08 | Outpatient (CLI) | payer MEDICARE ==
[2023-11-09 02:46] LABS: Blood Urea Nitrogen 15.1 mg/dL (9.0-27.0); Carbon Dioxide 27.4 mmol/L (21.6-31.8); Chloride 102 mmol/L (96-109); HCT 40.2 % (39.6-50.0); HGB 13.5 g/dL (13.0-17.0); MCH 32.9 pg (27.0-32.0); MCHC 33.6 g/dL (32.0-37.0); Mean Platelet Volume 9.8 FL (9.5-12.2); NRBC Per 100 WBC 0 X 10*3/uL (0.00-0.01); Platelet Count 181 X 10*3/uL (140-440); Potassium 4.9 mmol/L (3.5-5.5); RDW 13.2 % (11.5-14.5); Sodium 142 mmol/L (135-145); WBC 4.98 X 10*3/uL (4.50-10.00)
== END | disposition home or self-care (01) ==
LOC: LABPAT 14:28
PROVIDERS: ATTEND Internal Medicine Interventional Cardiology
DX: Z01.812 Encounter for preprocedural laboratory examination (principal); R94.39 Abnormal result of other cardiovascular function study
CPT/HCPCS: 36415; 80051; 82565; 84520; 85027

== ENCOUNTER 2023-11-16 07:40 | Day surgery (SDC) | payer MEDICARE ==
[~2023-11-16 07:40] MED LIST changes: -ACETAMINOPHEN TAB 500 MG TAB PO ONE; +ALPRAZolam 0.25 MG TAB PO PRN; +ALPRAZolam 0.5 MG TAB PO PRN; +ASPIRIN 325 MG TAB PO ONE; -MELOXICAM 7.5 MG TAB PO ONE; -MIDAZOLAM 2 MG/2 ML VIAL IV PRN; +NITROGLYCERIN SL TABS 0.4 MG TAB SUBLINGUAL PRN; -ROPIVACAINE 246.25 MG, EPINEPHrine 0.5 MG, KETOROLAC 30 MG, cloNIDine HCL/PF 80 MCG, WA... MISCELLANE ONE; -TRANEXAMIC ACID 1,000 MG in SODIUM CHLORIDE 0.9% 50 ML IVPB ONE; -ceFAZolin IN SWFI 2 GM/20 ML SYRINGE IVP ONE; -fentaNYL (PF) 50 MCG/ML 2 ML AMP IV PRN
[2023-11-16] MEDS: SODIUM CHLORIDE 0.9% 1,000 ML in EMPTY BAG 1 BAG IV SCH (08:03)
[2023-11-16 08:19] VITALS: RESP 18; TEMP 98.6
[2023-11-16] MEDS ORDERED: HEPARIN SODIUM 1,000 UN/ML (10ML VL) ONE (09:18)
[2023-11-16] MEDS ORDERED: LIDOCAINE 1% INJ 10MG/ML (20 ML MDV) ONE (09:18)
[2023-11-16] MEDS ORDERED: VERAPAMIL 2.5 MG/ML 2 ML AMP ONE (09:18)
[2023-11-16] MEDS: MIDAZOLAM 2 MG/2 ML VIAL IVP ONE (09:38)
[2023-11-16] MEDS: LIDOCAINE 1% INJ 10MG/ML (20 ML MDV) SQ ONE (09:39)
[2023-11-16] MEDS ORDERED: SODIUM CHLORIDE 0.9% 1,000 ML IV SCH (10:00)
[2023-11-16] MEDS: IOPAMIDOL-370 100ML BTL INJ ONE (10:00)
[2023-11-16] MEDS ORDERED: NON FORMULARY DRUG (Metformin Hcl [Glucophage] 1,000 MG Tablet) PO SCH (10:00)
[2023-11-16] MEDS ORDERED: RX INFO: IV CONTRAST WAS GIVEN 1 EACH MISC MISCELLANE PRN (10:00)
--- NOTE | 2023-11-16 11:31 | CC ---
CARDIAC CATHETERIZATION REPORT PROCEDURE: Left heart catheterization, coronary angiography. PERFORMED BY: Dr. Brianna Bray. ANESTHESIA: Moderate conscious sedation time was 19 minutes. The patient was administered Versed. Oxygen saturation, hemodynamics, and EKG were monitored closely. CLINICAL INFORMATION: Mr. Antonino Latham is a 73-year-old gentleman with history of hypertension, hyperlipidemia, type 2 diabetes, and sleep apnea syndrome, who just started wearing CPAP about 3 weeks ago. He has been having chest tightness, pressure, and abnormal stress test with inferior wall reversible defect. His previous cardiac cath from April 2020 did not reveal any significant obstructive disease. He was advised cardiac cath given the abnormal stress test. The risks, benefits, options, and rationale were explained. The patient understood all details and wished to proceed with the procedure. PROCEDURE NOTE: Under local anesthesia and strict aseptic precautions, a 6-Sinhala introducer was placed in the right femoral artery. Previous attempt from the right radial was difficult because of extreme tortuosity in the ascending aorta area. Using standard Carine catheters, I performed coronary angiography and a pigtail catheter was used to check LV pressures, but LV-gram was not performed. The sheath was taken out and Angio-Seal device used to secure hemostasis and he was sent to the room in a stable condition. CARDIAC CATHETERIZATION FINDINGS: The left ventricular end-diastolic pressure was 13 mmHg without any gradient across aortic valve. CORONARY ANGIOGRAPHY FINDINGS: Right coronary artery: This is a dominant vessel, has no significant disease in the proximal, mid, or distal portion and it then gives off 3 branches, one is the PLV which is a larger branch and the 2 smaller branches in the PDA distribution reveal minor irregularities. No significant disease. Distal branches of RCA have minor irregularities, no significant disease. Superdominant RCA is free of significant disease. Left main coronary artery: Short patent vessel that immediately bifurcates into LAD and circumflex. The left main is free of significant disease, and bifurcates into LAD and circumflex. Left anterior descending coronary artery: Good caliber vessel extends along the anterior wall, gives off a good-sized diagonal branch that has about a 35% stenosis in the proximal portion as it comes off from the LAD. The LAD itself has minor irregularities, no significant disease. It runs all the way to the apex, curves over the apex to supply a sizable amount of myocardium. LAD is free of significant disease. The diagonal, which is of a good caliber and distribution, has about a 35% narrowing in the proximal portion as it comes off from the LAD. Left posterior circumflex coronary artery: Technically nondominant vessel gives off a single high obtuse marginal that runs in the ramus distribution, has minor irregularities, no significant disease in circumflex. The AV groove is small in caliber and distribution. No significant disease. FINAL IMPRESSION: This patient has normal filling pressures of about 13 mmHg without any gradient across the aortic valve. Right dominant system, no significant disease in the RCA. Circumflex, which is nondominant, is free of significant disease. LAD is free of significant disease, but the diagonal branch has about 35% narrowing as it comes off from the LAD. RECOMMENDATIONS: Findings were discussed with the patient and . I am recommending continued aggressive medical therapy with risk factor modification. The patient will be discharged later on today and I will see him in the office on Monday. MMJACOBO / KVNGN: [id number] /
[2023-11-16 16:04] VITALS: BP 113/70; PULSE 48
[2023-11-16] MEDS ORDERED: ATORVASTATIN 20 MG TAB PO SCH (21:00)
[2023-11-16] MEDS ORDERED: NON FORMULARY DRUG (Aspirin [Adult Low Dose Aspirin Ec] 81 MG Tablet.Dr) PO SCH (21:00)
[2023-11-16] MEDS ORDERED: NON FORMULARY DRUG (Enalapril 10 MG Tab) PO SCH (21:00)
[2023-11-17] MEDS ORDERED: NON FORMULARY DRUG (Multivitamin [Men's Multi-Vitamin] 1 EACH Tablet) PO SCH (09:00)
[2023-11-17] MEDS ORDERED: CHOLECALCIFEROL 25 MCG (1000 IU) TABLET PO SCH (09:00)
[2023-11-17] MEDS ORDERED: ASCORBIC ACID 500 MG TAB PO SCH (09:00)
[2023-11-17] MEDS ORDERED: METOPROLOL SUCCINATE (ER) 25 MG TAB.ER.24H PO SCH (09:00)
[2023-11-17] MEDS ORDERED: NON FORMULARY DRUG (Omega-3 Fatty Acids/Fish Oil [Fish Oil 1,000 Mg Softgel] 1 EACH Capsul PO SCH (09:00)
[2023-11-17] MEDS ORDERED: ISOSORBIDE MONONITRATE ER 30 MG TAB.ER.24H PO SCH (09:00)
[2023-11-17] MEDS ORDERED: NON FORMULARY DRUG (Zinc [Zinc] 50 MG Tablet) PO SCH (09:00)
== END 2023-11-16 15:55 | disposition home or self-care (01) ==
LOC: CATHCVL 07:40
PROVIDERS: ATTEND Internal Medicine Interventional Cardiology
DX: R94.39 Abnormal result of other cardiovascular function study (principal); E11.9 Type 2 diabetes mellitus without complications; E78.5 Hyperlipidemia, unspecified; G47.30 Sleep apnea, unspecified; I10 Essential (primary) hypertension; E66.9 Obesity, unspecified; Z79.84 Long term (current) use of oral hypoglycemic drugs; Z79.82 Long term (current) use of aspirin; Z79.899 Other long term (current) drug therapy
CPT/HCPCS: 99152; 93458; C1760; C1769 ×2; C1894; J2250; J2001; Q9967

== ENCOUNTER 2024-02-09 19:28 | Emergency (ER) | payer MEDICARE ==
--- NOTE | 2024-02-09 19:51 | ED ---
General Adult HPI - General Source: patient, RN notes reviewed Mode of arrival: ambulatory Limitations: physical limitation <Gonzalo Valentine - Last Filed: 02/09/24 19:51> <Gaby Gross - Last Filed: 02/10/24 13:14> - General Chief complaint: Extremity Injury, Lower Stated complaint: L Hip Pain Time Seen by Provider: 02/09/24 19:49 - History of Present Illness Initial comments: 73-year-old male presenting to the ED with a chief complaint of left hip pain. Patient reports that he was at physical therapy doing balancing exercises when he heard a crack in his hip. Since then notes pain of his left hip. (Gonzalo Valentine) 73-year-old male presents to the emergency department for evaluation of left hip pain. Patient states that he was at physical therapy today. While attempting to step up exercises he noticed a "pop" in his left hip region. He states that following this he had quite a bit of pain. He did take ibuprofen for this earlier today which helped with pain. He has been able to ambulate since then. He does note that the pain is significantly worse when he ambulates. He reports that if he is sitting the pain is minimal. He denies any numbness, tingling, pain radiating down the leg. (Gaby Gross) - Related Data Home Medications Medication Instructions Recorded Confirmed Atorvastatin Calcium [Lipitor] 20 mg PO HS 02/27/15 11/16/23 Enalapril [Vasotec] 10 mg PO HS 02/27/15 11/16/23 Multivitamin [Men's Multi-Vitamin] 1 tab PO DAILY 02/27/15 11/16/23 [place]-3 Fatty Acids/Fish Oil [Fish 1,000 mg PO DAILY 02/27/15 11/16/23 Oil 1,000 mg Softgel] metFORMIN HCL [Glucophage] 1,000 mg PO BID 08/29/18 11/16/23 Aspirin [Adult Low Dose Aspirin EC] 81 mg PO HS 04/24/20 11/16/23 Cholecalciferol [Vitamin D3 (25 25 mcg PO DAILY 11/04/20 11/16/23 Mcg = 1000 Iu)] Zinc 50 mg PO DAILY 11/04/20 11/16/23 Isosorbide Mononitrate ER [Imdur] 30 mg PO DAILY 11/13/23 11/16/23 Metoprolol Succinate (ER) [Toprol 12.5 mg PO DAILY 11/13/23 11/16/23 Xl] Previous Rx's Medication Instructions Recorded Ascorbic Acid [Vitamin C] 1,000 mg PO DAILY tab 11/06/20 Allergies Allergy/AdvReac Type Severity Reaction Status Date / Time No Known Allergies Allergy Verified 02/09/24 19:46 Review of Systems ROS Other: All systems not noted in ROS Statement are negative. <Gonzalo Valentine - Last Filed: 02/09/24 19:51> ROS Other: All systems not noted in ROS Statement are negative. <Gaby Gross - Last Filed: 02/10/24 13:14> ROS Statement: Those systems with pertinent positive or pertinent negative responses have been documented in the HPI. Past Medical History Past Medical History: Cancer, Chest Pain / Angina, Diabetes Mellitus, Hyperlipidemia, Hypertension, Sleep Apnea/CPAP/BIPAP Additional Past Medical History / Comment(s): Pt tested covid + on 10/2020 . Other hx: NIDDM type II, SVT, skin cancer with removal from back, hayfever/sinus problems, diverticular disease, benign colon polyp removed, hypoglycemia, using cpap History of Any Multi-Drug Resistant Organisms: None Reported Past Surgical History: Heart Catheterization, Hernia Repair, Joint Replacement, Orthopedic Surgery Additional Past Surgical History / Comment(s): 04/2020 cardiac cath, 2014 cardiac cath, L knee arthroscopy then total knee replacement, umbilical hernia repair, colonoscopy with benign polypectomy, skin cancer removed from back. Past Anesthesia/Blood Transfusion Reactions: No Reported Reaction Past Psychological History: No Psychological Hx Reported Smoking Status: Former smoker Past Alcohol Use History: None Reported Past Drug Use History: None Reported - Past Family History Father Family Medical History: Cancer Additional Family Medical History / Comment(s): PROSTATE Mother Family Medical History: Cancer Additional Family Medical History / Comment(s): COLON CANCER Brother(s) Family Medical History: Cancer Additional Family Medical History / Comment(s): COLON CA <Gonzalo Valentine - Last Filed: 02/09/24 19:51> General Exam Limitations: physical limitation <Gonzalo Valentine - Last Filed: 02/09/24 19:51> General appearance: alert, in no apparent distress Head exam: Present: atraumatic, normocephalic, normal inspection Eye exam: Present: normal appearance, PERRL, EOMI. Absent: scleral icterus, conjunctival injection, periorbital swelling ENT exam: Present: normal exam, mucous membranes moist Respiratory exam: Present: normal lung sounds bilaterally. Absent: respiratory distress, wheezes, rales, rhonchi, stridor Cardiovascular Exam: Present: regular rate, normal rhythm, normal heart sounds. Absent: systolic murmur, diastolic murmur, rubs, gallop, clicks Extremities exam: Present: normal inspection, full ROM, normal capillary refill, other (5 out of 5 strength in bilateral lower extremities, DP and PT pulses 2+.). Absent: tenderness, pedal edema, joint swelling, calf tenderness Neurological exam: Present: alert, oriented X3 Psychiatric exam: Present: normal affect, normal mood Skin exam: Present: warm, dry, intact, normal color. Absent: rash <Gaby Gross - Last Filed: 02/10/24 13:14> - General Exam Comments Initial Comments: Visual Physical Exam Vital signs reviewed General: Well-appearing, nontoxic, no acute distress. Head: Normocephalic, atraumatic Eyes: PERRLA, EOMI ENT: Airway patent Chest: Nonlabored breathing Skin: No visual rash, normal skin tone Neuro: Alert and oriented 3 Musculoskeletal: No gross abnormalities (Gonzalo Valentine) Course Vital Signs 02/09/24 02/09/24 02/09/24 19:46 21:25 23:52 Temperature 97.5 F L Pulse Rate 63 76 Respiratory 16 20 18 Rate Blood Pressure 187/88 126/74 O2 Sat by Pulse 97 98 Oximetry Medical Decision Making <Gonzalo Valentine - Last Filed: 02/09/24 19:51> <Gaby Gross - Last Filed: 02/10/24 13:14> - Medical Decision Making Quicknote portion performed. Signed Gonzalo Valentine PA-C (Gonzalo Valentine) Was pt. sent in by a medical professional or institution ([facility], [facility], urgent care, hospital, or [facility]...) When possible be specific @ -No Did you speak to anyone other than the patient for history (EMS, parent, family, police, friend...)? What history was obtained from this source @ -No Did you review nursing and triage notes (agree or disagree)? Why? @ -I reviewed and agree with nursing and triage notes Were old charts reviewed (outside hosp., previous admission, EMS record, old EKG, old radiological studies, urgent care reports/EKG's, [facility] records)? Report findings @ -No old charts were reviewed Differential Diagnosis (chest pain, altered mental status, abdominal pain women, abdominal pain men, vaginal bleeding, weakness, fever, dyspnea, syncope, headache, dizziness, GI bleed, back pain, seizure, CVA, palpatations, mental health, musculoskeletal)? @ -Differential Musculoskeletal Muscular strain, contusion, ligament sprain, fracture, arthritis, septic arthritis, bursitis, cellulitis, muscle spasm, nerve compression, DVT, arterial occlusion, herpes zoster, electrolyte abnormality, tumor.... This is not meant to be in all inclusive list EKG interpreted by me (3pts min.). @ -None X-rays interpreted by me (1pt min.). @ -X-ray of the left femur and pelvis obtained which show no evidence of acute fracture, osteoarthritic changes present CT interpreted by me (1pt min.). @ -None done U/S interpreted by me (1pt. min.). @ -None done What testing was considered but not performed or refused? (CT, X-rays, U/S, labs)? Why? @ -None What meds were considered but not given or refused? Why? @ -None Did you discuss the management of the patient with other professionals (professionals i.e. , PA, [facility], lab, RT, psych nurse, delinquency prevention social worker, forestry foreman, teacher, signals officer, keycase assembler)? Give summary @ -No Was smoking cessation discussed for >3mins.? @ -No Was critical care preformed (if so, how long)? @ -No Were there social determinants of health that impacted care today? How? (Homelessness, low income, unemployed, alcoholism, drug addiction, transportation, low edu. Level, literacy, decrease access to med. care, [facility], rehab)? @ -No Was there de-escalation of care discussed even if they declined (Discuss DNR or withdrawal of care, Hospice)? DNR status @ -No What co-morbidities impacted this encounter? (DM, HTN, Smoking, COPD, CAD, Cancer, CVA, ARF, Chemo, Hep., AIDS, mental health diagnosis, sleep apnea, morbid obesity)? @ -None Was patient admitted / discharged? Hospital course, mention meds given and route, prescriptions, significant lab abnormalities, going to OR and other pertinent info. @ -Discharge. Patient presented to the emergency department for evaluation of left hip injury. Patient underwent x-rays. There was significant delay in x- ray reports. X-ray was therefore reviewed by myself and my attending, Dr. Patiño, we did not appreciate any acute fractures. Patient is able to ambulate without limitation. Discussed with patient that he will be called if the radiologist read shows any significant finding. Otherwise advised to rest, ice, elevate, utilize Tylenol Motrin for discomfort. Patient is understanding agreeable with plan. X-ray report reviewed following patient discharge which shows no evidence of acute fracture. Patient stable at time of discharge. Undiagnosed new problem with uncertain prognosis? @ -No Drug Therapy requiring intensive monitoring for toxicity (Heparin, Nitro, Insulin, Cardizem)? @ -No Were any procedures done? @ -No Diagnosis/symptom? @ -Left glute strain Acute, or Chronic, or Acute on Chronic? @ -acute Uncomplicated (without systemic symptoms) or Complicated (systemic symptoms)? @ -uncomplicated Side effects of treatment? @ -No Exacerbation, Progression, or Severe Exacerbation? @ -No Poses a threat to life or bodily function? How? (Chest pain, [place], NH, pneumonia, PE, COPD, DKA, ARF, appy, cholecystitis, CVA, Diverticulitis, Homicidal, Suicidal, threat to staff... and all critical care pts) @ -No (Gaby Gross) Disposition <Gonzalo Valentine - Last Filed: 02/09/24 19:51> Is patient prescribed a controlled substance at d/c from ED?: No <Gaby Gross - Last Filed: 02/10/24 13:14> Clinical Impression: Muscle strain of gluteal region, Left hip pain Disposition: HOME SELF-CARE Condition: Stable Instructions (If sedation given, give patient instructions): Hip Pain (ED) Additional Instructions: Please follow up with your primary care provider. Utilize Tylenol and Motrin for pain. Return to the emergency department for new or worsening symptoms. Referrals: Reyna Melvin MD [Primary Care Provider] - 1-2 days
[2024-02-09 21:07] VITALS: TEMP 97.5
[2024-02-09] MEDS: IBUPROFEN 600 MG TAB PO STA (23:00)
[2024-02-09 23:56] VITALS: BP 126/74; PULSE 76; RESP 18
--- NOTE | 2024-02-10 04:02 | XR ---
EXAMINATION TYPE: XR pelvis AP view DATE OF EXAM: 02/09/2024 9:04 PM CLINICAL INDICATION:Male, 73 years old with history of r/o fx; left hip pain COMPARISON: None TECHNIQUE: Single frontal view pelvis, 4 views left femur. FINDINGS: Osseous mineralization appears appropriate. No evidence of lytic/blastic lesion. Moderate degenerative changes of the lower lumbar spine with slight apex right curvature. Mild degene rative change of the SI joints. Upper sacrum appears grossly intact. Distal sacrum cannot be cleared. There is mild to moderate bilateral hip arthropathy. Preserved spherical shape of the femoral heads. No dislocation. No visualized femur fracture or dislocation. Degenerative changes in the intertrochanteric region. No discrete fracture or significant malalignment throughout the femur. There is a total knee arthropl asty present, which appears intact and normally aligned. There is slight osseous deformity and some r arefaction in the distal medial femur, the appearance favors that this is chronic/postoperative. No p erihardware fracture is seen. IMPRESSION: No evidence of acute fracture involving the pelvis or left hip.
--- NOTE | 2024-02-10 04:03 | XR ---
EXAMINATION TYPE: XR femur LT DATE OF EXAM: 02/09/2024 9:05 PM CLINICAL INDICATION:Male, 73 years old with history of r/o fx; [facility] TECHNIQUE: Single frontal view pelvis, 4 views left femur. FINDINGS: Osseous mineralization appears appropriate. No evidence of lytic/blastic lesion. Moderate degenerative changes of the lower lumbar spine with slight apex right curvature. Mild degene rative change of the SI joints. Upper sacrum appears grossly intact. Distal sacrum cannot be cleared. There is mild to moderate bilateral hip arthropathy. Preserved spherical shape of the femoral heads. No dislocation. No visualized femur fracture or dislocation. Degenerative changes in the intertrochanteric region. No discrete fracture or significant malalignment throughout the femur. There is a total knee arthropl asty present, which appears intact and normally aligned. There is slight osseous deformity and some r arefaction in the distal medial femur, the appearance favors that this is chronic/postoperative. No p erihardware fracture is seen. IMPRESSION: No evidence of acute fracture involving the pelvis or left hip.
== END 2024-02-09 23:52 | disposition home or self-care (01) ==
LOC: EC 19:28
DX: S76.012A Strain of muscle, fascia and tendon of left hip, initial encounter (principal); Z87.891 Personal history of nicotine dependence; Z86.16 Personal history of COVID-19; X50.1XXA Overexertion from prolonged static or awkward postures, initial encounter; Y99.0 Civilian activity done for income or pay
CPT/HCPCS: 72170; 99284